=== PATIENT | female | born 1930 | race Caucasian/White ===

== ENCOUNTER 2016-09-05 09:09 | Inpatient (IN) | payer OTHER, MEDICARE ==
[~2016-09-05] VITALS: Ht 170.2 cm; Wt 77.6 kg
[~2016-09-05 09:09] MED LIST: ASPEC325; CLTP; METO50TA16; SPIR25TA
[2016-09-05 09:51] LABS: BASO % 0.3 %; BASO ABS # 0.02 K/uL (0-0.2); COMPLETE YES; EOS % 4.6 %; HEMATOCRIT 40.2 % (37-47); LYMPH ABS # 1.46 K/uL (1.2-3.4); MEAN CELL VOLUME 87.2 fL (80-100); MEAN CORPUSCULAR HEMOGLOBIN 28.2 pg (25-34); MEAN CORPUSCULAR HGB CONC 32.3 g/dl (32-36); MEAN PLATELET VOLUME 9.9 fL (7.4-10.4); MONO % 6.4 %; NEUT % 64.7 %; PLATELET COUNT 165 K/uL (130-400); RED BLOOD COUNT 4.61 M/uL (4.2-5.4); WHITE BLOOD COUNT 6.09 K/uL (4.8-10.8)
--- NOTE | 2016-09-05 09:58 | EMERGENCY ROOM VISIT NOTE ---
History Report prepared by Bereket: Woo Bedolla Under the Supervision of: Dr. Deep Rushing M.D. First contact with patient: 09:34 Chief Complaint: SHORTNESS OF BREATH Stated Complaint: SOB Nursing Triage Summary: Pt states, "I just can't get my breath." Started yesterday. Denies cp or cough. History of Present Illness The patient is an 86 year old female who presents to the Emergency Room with complaints of worsening shortness of breath starting yesterday. The patient states that yesterday the shortness of breath was only when she exerted herself , however now it is constant. The patient denies any abdominal pain, fever, or chills. She states that she is having some mild ankle swelling. She states that she feels like her heart is missing a beat, though this has been chronic, and she has a replacement valve in her heart since 1998. The patient states that she has never had shortness of breath like this before. She additionally states that she has not had any difficulties eating, drinking, urinating, or having bowel movements. The daughter states that the patient was recently adjusted at chiropractor. Source of History: patient, family Onset: yesterday Position: other (global) Quality: other (shortness of breath) Timing: worsening Associated Symptoms: No fevers, No chills, No abdominal pain, No urinary symptoms Note: Associated symptoms: Ankle swelling Review of Systems All systems have been listed, reviewed, and are negative other than those previously mentioned. Please see Additional Medical History Sheet. Past Medical & Surgical Medical Problems: (1) Acute CHF (2) Diabetes (3) HTN (hypertension) Surgical Problems: (1) Heart valve replaced Family History Diabetes mellitus Hypertension Social History Smoking Status: Never Smoker Marital Status: Housing Status: lives alone Occupation Status: retired Current/Historical Medications Scheduled Aspirin (Aspirin Ec), 325 MG PO QAM Metformin Hcl (Glucophage), 500 MG PO DAILY Metoprolol Tartrate (Lopressor) (Lopressor), 50 MG PO DAILY Ranitidine (Zantac), 150 MG PO DAILY Spironolactone (Aldactone), 25 MG PO DAILY Allergies Coded Allergies: Ciprofloxacin (Unverified Allergy, Severe, HIVES, 09/05/16) Penicillins (Unverified Allergy, Mild, HIVES, 09/05/16) Quinolones (Unverified Allergy, Mild, HIVES, 09/05/16) Physical Exam Vital Signs Date Time Temp Pulse Resp B/P (MAP) Pulse Ox O2 Delivery O2 Flow Rate FiO2 09/05/16 11:14 89 18 137/78 97 Room Air 09/05/16 10:25 78 17 156/76 97 Room Air 09/05/16 09:49 90 09/05/16 09:41 90 18 151/88 97 Room Air 09/05/16 09:33 97 Room Air 09/05/16 09:14 92 20 168/61 97 Room Air Physical Exam GENERAL: Patient awake, alert, oriented x 3. Patient follows commands. Patient does not appear toxic. Patient is adequately hydrated and well- nourished. SKIN: No erythema, pallor, cyanosis or rash HEENT: Normal head, pupils equal, reactive to light and accommodation. Oral cavity and posterior pharynx appear normal. Mucous membranes are dry. Neck: Without adenopathy, no neck vein distention. LUNGS: Clear to auscultation. No wheezes, no rales, no rhonchi. HEART: 2/6 systolic murmur. No gallops. No rubs ABDOMEN: No masses, no rebound, no hepatomegaly or splenomegaly. EXTREMITIES: 1+ pretibial edema. No signs of trauma. No pedal edema. No calf or thigh tenderness. NEUROLOGIC: Cranial nerves II-XII within normal limits. No gross motor sensory function deficits. Medical Decision & Procedures ER Provider Diagnostic Interpretation: X ray results are stated below per my interpretation and the radiologist's interpretation. CHEST 2 VIEWS ROUTINE CLINICAL HISTORY: Shortness of breath COMPARISON STUDY: No previous studies for comparison. FINDINGS: There are postsurgical changes of midline sternotomy and valvular replacement. The heart is mildly enlarged. There is interstitial edema with bilateral septal lines. There are small bilateral pleural effusions. There is no lobar consolidation.[ There are surgical clips in the left axillary region. IMPRESSION: Mild interstitial pulmonary edema with small bilateral pleural effusions. Electronically signed by: Miguel Arreola M.D. 09/05/2016 10:08 AM Dictated Date/Time: 09/05/2016 10:07 AM Laboratory Results 09/05/16 09:33 Red Blood Count 4.61, Mean Corpuscular Volume 87.2, Mean Corpuscular Hemoglobin 28.2, Mean Corpuscular Hemoglobin Concent 32.3, Mean Platelet Volume 9.9, Neutrophils (%) (Auto) 64.7, Lymphocytes (%) (Auto) 24.0, Monocytes (%) (Auto) 6.4, Eosinophils (%) (Auto) 4.6, Basophils (%) (Auto) 0.3, Neutrophils # (Auto) 3.94, Lymphocytes # (Auto) 1.46, Monocytes # (Auto) 0.39, Eosinophils # (Auto) 0.28, Basophils # (Auto) 0.02 09/05/16 09:33 Test 09/05/16 09:33 White Blood Count 6.09 K/uL (4.8-10.8) Red Blood Count 4.61 M/uL (4.2-5.4) Hemoglobin 13.0 g/dL (12.0-16.0) Hematocrit 40.2 % (37-47) Mean Corpuscular Volume 87.2 fL (80-100) Mean Corpuscular Hemoglobin 28.2 pg (25-34) Mean Corpuscular Hemoglobin Concent 32.3 g/dl (32-36) Platelet Count 165 K/uL (130-400) Mean Platelet Volume 9.9 fL (7.4-10.4) Neutrophils (%) (Auto) 64.7 % Lymphocytes (%) (Auto) 24.0 % Monocytes (%) (Auto) 6.4 % Eosinophils (%) (Auto) 4.6 % Basophils (%) (Auto) 0.3 % Neutrophils # (Auto) 3.94 K/uL (1.4-6.5) Lymphocytes # (Auto) 1.46 K/uL (1.2-3.4) Monocytes # (Auto) 0.39 K/uL (0.11-0.59) Eosinophils # (Auto) 0.28 K/uL (0-0.5) Basophils # (Auto) 0.02 K/uL (0-0.2) RDW Standard Deviation 50.3 fL (36.4-46.3) RDW Coefficient of Variation 15.6 % (11.5-14.5) Immature Granulocyte % (Auto) 0.0 % Immature Granulocyte # (Auto) 0.00 K/uL (0.00-0.02) Prothrombin Time 11.2 SECONDS (9.0-12.0) Prothromb Time International Ratio 1.0 (0.9-1.1) Anion Gap 10.0 mmol/L (3-11) Est Creatinine Clear Calc Drug Dose 29.0 ml/min Estimated GFR () 35.9 Estimated GFR (Non- 31.0 BUN/Creatinine Ratio 9.8 (10-20) Calcium Level 9.3 mg/dl (8.5-10.1) Total Bilirubin 0.6 mg/dl (0.2-1) Aspartate Amino Transf (AST/SGOT) 25 U/L (15-37) Alanine Aminotransferase (ALT/SGPT) 24 U/L (12-78) Alkaline Phosphatase 71 U/L (45-117) Pro-B-Type Natriuretic Peptide 5938 pg/ml (0-1800) Total Protein 7.2 gm/dl (6.4-8.2) Albumin 4.0 gm/dl (3.4-5.0) Globulin 3.2 gm/dl (2.5-4.0) Albumin/Globulin Ratio 1.3 (0.9-2) Thyroid Stimulating Hormone (TSH) 4.270 uIu/ml (0.300-4.500) Laboratory results as stated above per my review. Medications Administered Medications (Trade) Dose Ordered Sig/Maria Fernanda Route Start Time Stop Time Status Last Admin Dose Admin Furosemide (Lasix Inj) 40 mg NOW STAT IV 09/05/16 10:58 09/05/16 10:59 DC 09/05/16 11:13 40 MG Potassium Chloride (Klor-Con Pwd) 20 meq 1130 ONCE PO 09/05/16 11:30 09/05/16 13:11 DC 09/05/16 14:13 20 MEQ ECG Indication: SOB/dyspnea Rate (beats per minute): 91 Rhythm: atrial flutter Findings: PVC (frequent), no acute ischemic change, other (3 to 1 block) ED Course 0934: Past medical records reviewed. The patient was evaluated in room B12. A complete history and physical examination was performed. 1058: Lasix Inj 40mg IV 1100: I reevaluated the patient, and she was resting. I discussed the treatment plan with her and she was agreeable 1105: I discussed the patient's case with Dr. Dickson, Cardiology, and he will follow up with the patient. 1136: I discussed the patient's case with Marty Solares. He is going to evaluate the patient for further treatment. Medical Decision Differential diagnosis: Etiologies such as congestive heart failure, cardiac ischemia, aortic dissection , pulmonary embolism, pneumonia, pneumothorax, musculoskeletal, infections, pericarditis, myocarditis, esophageal rupture, gastrointestinal, as well as others were entertained. Medication Reconciliation: I attest that I have personally reviewed the patient' s current medication list. Blood Pressure Screening: Patient was found to have a slightly elevated blood pressure and was referred to the hospitalist. Multiple labs, EKG and imaging were obtained. Please see above. The patient is in mild pulmonary edema. She was given IV Lasix. The patient will require further evaluation in the hospital. I discussed care with the hospitalist. The patient also is in atrial flutter. Consults Time Called: 1059 Consulting Physician: Dr. Dickson, Cardiology Returned Call: [phone] I discussed the patient's case with Dr. Dickson, Cardiology, and he will follow up with the patient. Additional Consults: Time Called: 1100 Consulted Physician: Dr. Lainez Hospitalist Returned Call: [phone] Additional Comments: I discussed the patient's case with Marty Solares. He is going to evaluate the patient for further treatment. Impression Primary Impression: Pulmonary edema Additional Impression: Atrial flutter Scribe Attestation The scribe's documentation has been prepared under my direction and personally reviewed by me in its entirety. I confirm that the note above accurately reflects all work, treatment, procedures, and medical decision making performed by me. Departure Information Dispostion Being Evaluated By Hospitalist Referrals Eran Lieberman M.D. (PCP) Patient Instructions My [facility] Problem Qualifiers
[2016-09-05] MEDS ORDERED: ZNTT/150 PO (10:04)
[2016-09-05] MEDS ORDERED: GLC/500 PO (10:04)
[2016-09-05] MEDS ORDERED: ASPI325T39 PO (10:04)
[2016-09-05] MEDS ORDERED: METO50TA16 PO (10:04)
[2016-09-05] MEDS ORDERED: SPIR25TA PO (10:04)
--- NOTE | 2016-09-05 10:09 | DIAGNOSTIC IMAGING REPORT ---
CHEST 2 VIEWS ROUTINE CLINICAL HISTORY: Shortness of breath COMPARISON STUDY: No previous studies for comparison. FINDINGS: There are postsurgical changes of midline sternotomy and valvular replacement. The heart is mildly enlarged. There is interstitial edema with bilateral septal lines. There are small bilateral pleural effusions. There is no lobar consolidation.[ There are surgical clips in the left axillary region. IMPRESSION: Mild interstitial pulmonary edema with small bilateral pleural effusions. Electronically signed by: Miguel Arreola M.D. 09/05/2016 10:08 AM Dictated Date/Time: 09/05/2016 10:07 AM
[2016-09-05 10:15] LABS: BUN/CREATININE RATIO 9.8 (10-20); CALCIUM 9.3 mg/dl (8.5-10.1); CREATININE 1.5 mg/dl (0.60-1.20); POTASSIUM 4.1 mmol/L (3.5-5.1)
[2016-09-05 10:25] LABS: ALB/GLOB RATIO 1.3 (0.9-2); THYROID STIMULATING HORMONE 4.27 uIu/ml (0.300-4.500)
[2016-09-05] MEDS ORDERED: FUROSEMIDE 40 MG/4 ML VIAL IV STA (10:58)
[2016-09-05] MEDS ORDERED: NITROGLYCERIN 0.4 MG SL PER TAB CHARGE SL PRN (11:30)
[2016-09-05] MEDS ORDERED: MoRPHine SULFATE 2 MG/ML CARP IV PRN (11:30)
[2016-09-05] MEDS ORDERED: POTASSIUM CHLORIDE PWD 20 MEQ PACK PO ONE (11:30)
[2016-09-05] MEDS ORDERED: POLYETHYLENE (MIRALAX) 17 GM PACK PO PRN (11:30)
[2016-09-05] MEDS ORDERED: NITROGLYCERIN OINT 2% 1GM PACKET EXT SCH (11:30)
[2016-09-05] MEDS ORDERED: ACETAMINOPHEN 325 MG TAB PO PRN (11:30)
[2016-09-05] MEDS ORDERED: MAGNESIUM HYDROXIDE SUSP 30 ML UDC PO PRN (11:30)
[2016-09-05] MEDS ORDERED: ALUMINUM/MAGNESIUM/SIMETH (MAALOX MAX) 30 ML UDC PO PRN (11:30)
[2016-09-05] MEDS ORDERED: ONDANSETRON INJ 2 MG/ML 2 ML VIAL IV PRN (11:30)
[2016-09-05 11:40] VITALS: BP 137/78; PULSE 91; O2SAT 96; Ht 170.2 cm; Wt 77.6 kg
--- NOTE | 2016-09-05 12:46 | History and Physical ---
History & Physical Date & Time of Service: Sep 05, 2016 at 12:24 Chief Complaint: SOB Primary Care Physician: Eran Lieberman M.D. History of Present Illness Source: patient, family High-functioning 86 y/o F w/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 She presents with acute SOB which woke her up from sleep. She denies a cough, fever, CP, N/V or lightheadedness. She does not have a history of CHF. The last echo we have on record is from 2012, revealing a normal EF and a well-functioning AV without significant stenosis. Initial labs, imaging and clinical exam are consistent with acute CHF. Her SOB improved with a dose of Lasix in the ER. Labs are also notable for a degree of kidney injury as far as she knows her kidney function has previously been normal. An EKG reveals flutter at a controlled rate which is new for this pt. 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 Family History Diabetes mellitus Hypertension Father following a CVA Mother - complications of DM Social History Smoking Status: Never Smoker Marital Status: Occupational Status: retired Multi-Drug Resistant Organisms History of MDRO: No Allergies Coded Allergies: Ciprofloxacin (Unverified Allergy, Severe, HIVES, 09/05/16) Penicillins (Unverified Allergy, Mild, HIVES, 09/05/16) Quinolones (Unverified Allergy, Mild, HIVES, 09/05/16) Home Medications Scheduled Aspirin (Aspirin Ec), 325 MG PO QAM Metformin Hcl (Glucophage), 500 MG PO DAILY Metoprolol Tartrate (Lopressor) (Lopressor), 50 MG PO DAILY Ranitidine (Zantac), 150 MG PO DAILY Spironolactone (Aldactone), 25 MG PO DAILY Review of Systems Constitutional: No fever, No chills, No sweats Eyes: No worsening of vision, No eye pain ENT: No hearing loss, No nasal symptoms Respiratory: + shortness of breath, + dyspnea on exertion, + dyspnea at rest, No cough, No sputum, No wheezing Cardiovascular: + orthopnea, + PND, No chest pain Abdomen: No pain, No nausea, No vomiting Musculoskeletal: No joint pain Genitourinary - Female: No dysuria, No urinary frequency, No urinary urgency Neurologic: No memory loss, No paralysis, No weakness Psychiatric: No depression symptoms Endocrine: No fatigue Hematologic / Lymphatic: No abnormal bleeding/bruising Integumentary: No rash Allergic / Immunologic: No environmental allergies Physical Exam Vital Signs Date Time Temp Pulse Resp B/P (MAP) Pulse Ox O2 Delivery O2 Flow Rate FiO2 09/05/16 11:40 91 18 137/78 96 Room Air 09/05/16 11:14 89 18 137/78 97 Room Air 09/05/16 10:25 78 17 156/76 97 Room Air 09/05/16 09:49 90 09/05/16 09:41 90 18 151/88 97 Room Air 09/05/16 09:33 97 Room Air 09/05/16 09:14 92 20 168/61 97 Room Air General Appearance: WD/WN, no apparent distress Head: normocephalic Eyes: normal inspection, EOMI ENT: normal ENT inspection, pharynx normal Neck: supple, + JVD Respiratory/Chest: chest non-tender, no respiratory distress, + crackles (B/L R >L) Cardiovascular: regular rate, rhythm, no edema, no gallop, + JVD, + systolic murmur (3/6) Abdomen/GI: normal bowel sounds, non tender, soft Back: normal inspection, + pertinent finding (Kyphosis present) Extremities/Musculoskelatal: normal inspection, no calf tenderness, normal capillary refill Neurologic/Psych: devops solutions architect II-XII nml as tested, no motor/sensory deficits, alert, normal mood/affect, normal reflexes, oriented x 3 Skin: normal color, warm/dry, no rash Diagnostics Laboratory Results Results Past 24 Hours Test 09/05/16 09:33 Range/Units White Blood Count 6.09 4.8-10.8 K/uL Red Blood Count 4.61 4.2-5.4 M/uL Hemoglobin 13.0 12.0-16.0 g/dL Hematocrit 40.2 37-47 % Mean Corpuscular Volume 87.2 80-100 fL Mean Corpuscular Hemoglobin 28.2 25-34 pg Mean Corpuscular Hemoglobin Concent 32.3 32-36 g/dl Platelet Count 165 130-400 K/uL Mean Platelet Volume 9.9 7.4-10.4 fL Neutrophils (%) (Auto) 64.7 % Lymphocytes (%) (Auto) 24.0 % Monocytes (%) (Auto) 6.4 % Eosinophils (%) (Auto) 4.6 % Basophils (%) (Auto) 0.3 % Neutrophils # (Auto) 3.94 1.4-6.5 K/uL Lymphocytes # (Auto) 1.46 1.2-3.4 K/uL Monocytes # (Auto) 0.39 0.11-0.59 K/uL Eosinophils # (Auto) 0.28 0-0.5 K/uL Basophils # (Auto) 0.02 0-0.2 K/uL RDW Standard Deviation 50.3 36.4-46.3 fL RDW Coefficient of Variation 15.6 11.5-14.5 % Immature Granulocyte % (Auto) 0.0 % Immature Granulocyte # (Auto) 0.00 0.00-0.02 K/uL Sodium Level 140 136-145 mmol/L Potassium Level 4.1 3.5-5.1 mmol/L Chloride Level 104 98-107 mmol/L Carbon Dioxide Level 26 21-32 mmol/L Anion Gap 10.0 3-11 mmol/L Blood Urea Nitrogen 15 7-18 mg/dl Creatinine 1.50 0.60-1.20 mg/dl Est Creatinine Clear Calc Drug Dose 29.0 ml/min Estimated GFR () 35.9 Estimated GFR (Non- 31.0 BUN/Creatinine Ratio 9.8 10-20 Random Glucose 111 70-99 mg/dl Calcium Level 9.3 8.5-10.1 mg/dl Total Bilirubin 0.6 0.2-1 mg/dl Aspartate Amino Transf (AST/SGOT) 25 15-37 U/L Alanine Aminotransferase (ALT/SGPT) 24 12-78 U/L Alkaline Phosphatase 71 45-117 U/L Troponin I 0.026 0-0.045 ng/ml Pro-B-Type Natriuretic Peptide 5938 0-1800 pg/ml Total Protein 7.2 6.4-8.2 gm/dl Albumin 4.0 3.4-5.0 gm/dl Globulin 3.2 2.5-4.0 gm/dl Albumin/Globulin Ratio 1.3 0.9-2 Thyroid Stimulating Hormone (TSH) 4.270 0.300-4.500 uIu/ml Diagnostic Radiology CXR: Pulmonary edema EKG Flutter - PVCs rate controlled in 70s Impression Assessment and Plan High-functioning 86 y/o F w/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 She presents with acute SOB which woke her up from sleep. She denies a cough, fever, CP, N/V or lightheadedness. She does not have a history of CHF. The last echo we have on record is from 2012, revealing a normal AF and a well-functioning AV without significant stenosis. Initial labs, imaging and clinical exam are consistent with acute CHF. Her SOB improved with a dose of Lasix in the ER. Labs are also notable for a degree of kidney injury as far as she knows her kidney function has previously been normal. An EKG reveals flutter at a controlled rate which is new for this pt. 1) Acute CHF - We will obtain an echo and request a cardiology consult. Will r/ o an acute event with serial enzymes. She has been placed on BID Lasix at 20mg and will continue QD Aldactone. It is noted that her bioprosthesis is 18 y/o so that in the worst case scenario this is valvular CHF. We will avoid NTG at present to avoid significant preload reduction in the event that this is due to stenosis. 2) HTN - she will remain on a Bblocker 3) A flutter - new - consider full dose anticoagulation prior to DC - placed on ASA 4) Borderline DM - Metformin held for now - can be placed in Insulin however her Glu appears controlled Ful code - Heparin prophylaxis Total time for this admit including review of labs, meds, EKG, imaging and records - discussion with pt and ER attending - 35 min Advanced Directives Existing Living Will: No Existing Power of After School Program Coordinator: Yes VTE Prophylaxis VTE Risk Assessment Done? Y/N: Yes Risk Level: Moderate
[2016-09-05 12:50] VITALS: BP 147/81; PULSE 78; TEMP 36.4; O2SAT 97
[2016-09-05 13:49] LABS: PROTHROMBIN TIME (PATIENT) 11.2 SECONDS (9.0-12.0)
[2016-09-05] MEDS ORDERED: HEPARIN SOD 5000 UNIT/0.5 ML CARP SQ SCH (14:00)
[2016-09-05 15:53] VITALS: BP 132/49; PULSE 66; TEMP 36.4; O2SAT 95
--- NOTE | 2016-09-05 16:01 | ECHOCARDIOGRAM REPORT ---
*NOTICE TO RECEIVING [employer] This information is strictly Confidential and protected under [place] law. [place] law prohibits you from making any further disclosure of this information unless further disclosure is expressly permitted by the written consent of the person to whom it pertains or is authorized by law. A general authorization for the release of medical or other information is not sufficient for this purpose. Hospital accepts no responsibility if the information is made available to any other person, INCLUDING THE PATIENT. Interpretation Summary * Name: ANDRAE GZUMAN Study Date: 09/05/2016 01:17 PM BP: 155/78 mmHg * Patient Location: C.2E\S\E202\S\1 HR: 90 * : 1930 (M/d/yyy) Gender: Female Height: 67 in * Age: 86 yrs Ethnicity: CA Weight: 179 lb * Ordering Physician: Robin Lainez * Referring Physician: Self, Referred * Performed By: Hamida Chakraborty RCS * * Reason For Study: CHF * BSA: 1.9 m2 * -- Conclusions -- * 1. Normal left ventricular size and systolic function. EF 55-60%. No regional wall motion abnormalities. Mild concentric left ventricular hypertrophy. Tissue Doppler suggests elevated left atrial pressure. * 2. Mildly dilated right ventricle with mildly reduced systolic function. * 3. Mild biatrial dilation. * 4. Bioprosthetic aortic valve with elevated transvalvular gradients and velocities suggesting moderate to severe stenosis. Mild aortic regurgitation. * 5. Restricted posterior mitral leaflet with at least moderate mitral regurgitation. Systolic reversal of pulmonary venous flow pattern suggests significant mitral regurgitation. * 6. Mildly elevated estimated right ventricular systolic pressure; 39 mmHg. * 7. Compared to prior study on 02/08/2013, bioprosthetic aortic valve transvalvular gradients/velocities are now more significantly elevated. Mitral regurgitation now appears more significant. Rhythm is now atrial flutter. Procedure Details * Left Ventricle The left ventricle is normal in size. There is mild concentric left ventricular hypertrophy. Ejection Fraction = 55-60%. Left ventricular systolic function is normal. The left ventricular wall motion is normal. * Right Ventricle The right ventricle is mildly dilated. The right ventricular systolic function is reduced as assessed by tricuspid annular plane systolic excursion (TAPSE) (TAPSE <1.6 cm). * Atria The left atrium is mildly dilated. The right atrium is mildly dilated. There is no evidence of atrial septal defect, but resolution does not allow assessment for a patent foramen ovale. * Mitral Valve There is no mitral valve stenosis. Restricted posterior mitral leaflet with at least moderate mitral regurgitation. Systolic reversal of pulmonary venous flow pattern suggests significant mitral regurgitation. * Tricuspid Valve The tricuspid valve is not well visualized, but is grossly normal. There is no tricuspid stenosis. There is mild tricuspid regurgitation. * Aortic Valve Bioprosthetic aortic valve with elevated transvalvular gradients and velocities suggesting moderate to severe stenosis. Mild aortic regurgitation. * Pulmonic Valve The pulmonary valve is inadequately visualized, but the Doppler data is adequate for interpretation. There is no pulmonic valvular stenosis. Trace pulmonic valvular regurgitation. * Great Vessels The aortic root is normal size. * Pericardium/Pleural There is no pericardial effusion. * Great Vessels Normal inferior vena cava size and collapsability with sniff indicates a normal right atrial pressure of 3 mmHg * * MMode 2D Measurements and Calculations * IVSd 1.2 cm * * LVIDd 5.1 cm * LVIDs 3.6 cm * LVPWd 1.2 cm * * IVS/LVPW 1.0 * FS 30.0 % * EDV(Teich) 122.5 ml * ESV(Teich) 52.7 ml * EF(Teich) 57.0 % * * EDV(cubed) 130.9 ml * ESV(cubed) 44.8 ml * EF(cubed) 65.8 % * * LV mass(C)d 244.7 grams * LV mass(C)dI 126.9 grams/m\S\2 * * SV(Teich) 69.8 ml * SI(Teich) 36.2 ml/m\S\2 * SV(cubed) 86.1 ml * SI(cubed) 44.6 ml/m\S\2 * * Ao root diam 3.6 cm * Ao root area 10.1 cm\S\2 * * LVOT diam 2.4 cm * LVOT area 4.4 cm\S\2 * * LVAd ap4 37.0 cm\S\2 * LVLd ap4 8.2 cm * EDV(MOD-sp4) 135.0 ml * EDV(sp4-el) 142.9 ml * LVAs ap4 22.9 cm\S\2 * LVLs ap4 7.6 cm * ESV(MOD-sp4) 59.5 ml * ESV(sp4-el) 58.7 ml * EF(MOD-sp4) 55.9 % * EF(sp4-el) 58.9 % * * LVAd ap2 33.2 cm\S\2 * LVLd ap2 8.2 cm * EDV(MOD-sp2) 110.5 ml * EDV(sp2-el) 113.6 ml * LVAs ap2 19.9 cm\S\2 * LVLs ap2 7.7 cm * ESV(MOD-sp2) 44.6 ml * ESV(sp2-el) 43.4 ml * EF(MOD-sp2) 59.6 % * EF(sp2-el) 61.8 % * * LVLd %diff 1.1 % * EDV(MOD-bp) 122.9 ml * LVLs %diff -0.26 % * ESV(MOD-bp) 50.4 ml * EF(MOD-bp) 59.0 % * * SV(MOD-sp4) 75.5 ml * SI(MOD-sp4) 39.1 ml/m\S\2 * * SV(MOD-sp2) 65.8 ml * SI(MOD-sp2) 34.1 ml/m\S\2 * * SV(MOD-bp) 72.5 ml * SI(MOD-bp) 37.6 ml/m\S\2 * * SV(sp4-el) 84.2 ml * SI(sp4-el) 43.7 ml/m\S\2 * * SV(sp2-el) 70.2 ml * SI(sp2-el) 36.4 ml/m\S\2 * * * Doppler Measurements and Calculations * MV E max christopher 152.8 cm/sec * * Ao V2 max 381.3 cm/sec * Ao max PG 58.3 mmHg * Ao max PG (full) 54.7 mmHg * Ao V2 mean 276.3 cm/sec * Ao mean PG 34.0 mmHg * Ao mean PG (full) 31.9 mmHg * Ao V2 VTI 86.6 cm * BRANDIN(I,A) 1.2 cm\S\2 * BRANDIN(I,D) 1.2 cm\S\2 * BRANDIN(V,A) 1.1 cm\S\2 * BRANDIN(V,D) 1.1 cm\S\2 * * AI max christopher 410.3 cm/sec * AI max PG 67.3 mmHg * AI dec slope 474.3 cm/sec\S\2 * AI P1/2t 253.3 msec * * LV V1 max PG 3.7 mmHg * LV V1 mean PG 2.1 mmHg * * LV V1 max 95.4 cm/sec * LV V1 mean 68.5 cm/sec * LV V1 VTI 23.1 cm * * SV(Ao) 872.4 ml * SI(Ao) 452.3 ml/m\S\2 * SV(LVOT) 101.4 ml * SI(LVOT) 52.6 ml/m\S\2 * * TR max christopher 311.9 cm/sec * RVSP(TR) 41.9 mmHg * * RAP systole 3.0 mmHg * *
[2016-09-05 17:01] LABS: PARTIAL THROMBOPLASTIN RATIO 1.2
[2016-09-05] MEDS ORDERED: WARFARIN SOD 5 MG TAB PO ONE (17:30)
--- NOTE | 2016-09-05 17:41 | Cardiology Consultation ---
Cardiology Consultation Date of Consultation: Sep 05, 2016. Requesting Physician: Dr. Lainez Attending Physician: Dr. Lainez Reason for Consultation: CHF Pt evaluation today including: conversation w/ patient, conversation w/ family , physical exam, chart review, lab review, review of studies, review of inpatient medication list, conversation w/ attending History of Present Illness Mrs Castro is a very pleasant 86-year-old female with a history significant for aortic regurgitation status post bioprosthetic aortic valve replacement in 1998, hypertension, and borderline diabetes. She presented to [facility] with shortness of breath. On 09/04/2016 she noticed increasing dyspnea with exertion and orthopnea. She noticed the dyspnea more so with climbing stairs but also with other exertional activities. She typically sleeps in a chair due to comfort but noticed more orthopnea and felt much better when sitting upright. She did not sleep because of her breathing. She denied chest pain, syncope, near-syncope, worsening palpitations, or edema more than baseline. She states that she does have ankle swelling from time to time but she often sits with her feet down. She does have occasional palpitations when she gets excited, but nothing sustained. She was felt to be in CHF in the emergency department was given IV Lasix. She is diuresed greater than 2 L negative thus far and feels much better from a breathing standpoint. She states that she had a cardiac catheterization in 1998 prior to her aortic valve replacement and was told that she had no coronary artery disease. She denies a history of stroke or TIA. She denies bleeding such as melena, hematochezia, or hematuria. She has not been diagnosed with CHF in the past. She lives alone and is able to maintain her daily activities. Review of systems: As above review of systems otherwise negative. Past Medical/Surgical History (1) Aortic regurgitation (2) Borderline diabetes (3) History of aortic valve replacement with bioprosthetic valve (4) HTN (hypertension) Family History Diabetes mellitus Hypertension No known premature CAD. Social History Smoking Status: Never Smoker History of Alcohol Use: No Denies tobacco, alcohol, or drug abuse. She is a since 2010. She has 3 children, 2 daughters and 1 son. Her daughter, son-in-law, and granddaughter presented to the bedside. She lives alone in [place] and is independent. All Other Systems: Reviewed and Negative Allergies Coded Allergies: Ciprofloxacin (Unverified Allergy, Severe, HIVES, 09/05/16) Penicillins (Unverified Allergy, Mild, HIVES, 09/05/16) Quinolones (Unverified Allergy, Mild, HIVES, 09/05/16) Medications Current Inpatient Medications Medications (Trade) Dose Ordered Sig/Maria Fernanda Route Start Time Stop Time Status Last Admin Dose Admin Aspirin (Ecotrin Tab) 325 mg QAM PO 09/06/16 09:00 10/06/16 08:59 Metoprolol Tartrate (Lopressor Tab) 50 mg DAILY PO 09/06/16 09:00 10/06/16 08:59 Ranitidine HCl (zANTac TAB) 150 mg DAILY PO 09/06/16 09:00 10/06/16 08:59 Spironolactone (Aldactone Tab) 25 mg DAILY PO 09/06/16 09:00 10/06/16 08:59 Furosemide 20 mg/ Syringe 2 ml @ 4 mls/min BID@0600,1800 IV 09/05/16 18:00 10/05/16 17:59 Heparin Sodium (Porcine) (Heparin Sq 5000 Unit/0.5ml) 5,000 unit Q8 SQ 09/05/16 14:00 10/05/16 13:59 Acetaminophen (Tylenol Tab) 650 mg Q4H PRN PO 09/05/16 11:30 10/05/16 11:29 Al Hydrox/Mg Hydrox/Simethicone (Maalox Max Susp) 15 ml Q4H PRN PO 09/05/16 11:30 10/05/16 11:29 Magnesium Hydroxide (Milk Of Magnesia Susp) 30 ml Q12H PRN PO 09/05/16 11:30 10/05/16 11:29 Ondansetron HCl (Zofran Inj) 4 mg Q6H PRN IV 09/05/16 11:30 10/05/16 11:29 Nitroglycerin (Nitrostat Tab) 0.4 mg UD PRN SL 09/05/16 11:30 10/05/16 11:29 Morphine Sulfate (MoRPHine SULFATE INJ) 2 mg Q30M PRN IV 09/05/16 11:30 09/19/16 11:29 Polyethylene (Miralax Powder Packet) 17 gm DAILY PRN PO 09/05/16 11:30 10/05/16 11:29 Physical Exam Vital Signs Past 12 Hours Date Time Temp Pulse Resp B/P (MAP) Pulse Ox O2 Delivery O2 Flow Rate FiO2 09/05/16 16:00 Room Air 09/05/16 15:53 36.4 66 18 132/49 (76) 95 Room Air 09/05/16 12:50 36.4 78 18 147/81 (103) 97 Room Air 09/05/16 12:27 87 18 155/68 98 Room Air 09/05/16 11:40 91 18 137/78 96 Room Air 09/05/16 11:14 89 18 137/78 97 Room Air 09/05/16 10:25 78 17 156/76 97 Room Air 09/05/16 09:49 90 09/05/16 09:41 90 18 151/88 97 Room Air 09/05/16 09:33 97 Room Air 09/05/16 09:14 92 20 168/61 97 Room Air Gen.: No acute distress. Alert and oriented. HEENT: Anicteric sclera. Neck: Mild JVD and hepatic jugular reflux. Right carotid bruit. Normal carotid upstrokes bilaterally. Cardiac: PMI was nondisplaced. No ventricular heave. Regular. Normal S1-S2. 2/6 mid to late peaking systolic ejection murmur heard best at right upper sternal border. No rubs or gallops. Pulmonary: Clear to auscultation bilaterally without wheezes, rales, or rhonchi. Abdomen: Soft, nontender, nondistended, with normoactive bowel sounds. No bruits noted. Extremities: 2+ radial pulses bilaterally. 2+ posterior tibialis pulses bilaterally. Trace right lower extremity edema. No cyanosis. Psychiatric: Affect appears appropriate. Data Laboratory Results: Last 24 Hours Test 09/05/16 09:33 09/05/16 13:03 09/05/16 15:56 09/05/16 16:38 White Blood Count 6.09 K/uL Red Blood Count 4.61 M/uL Hemoglobin 13.0 g/dL Hematocrit 40.2 % Mean Corpuscular Volume 87.2 fL Mean Corpuscular Hemoglobin 28.2 pg Mean Corpuscular Hemoglobin Concent 32.3 g/dl Platelet Count 165 K/uL Mean Platelet Volume 9.9 fL Neutrophils (%) (Auto) 64.7 % Lymphocytes (%) (Auto) 24.0 % Monocytes (%) (Auto) 6.4 % Eosinophils (%) (Auto) 4.6 % Basophils (%) (Auto) 0.3 % Neutrophils # (Auto) 3.94 K/uL Lymphocytes # (Auto) 1.46 K/uL Monocytes # (Auto) 0.39 K/uL Eosinophils # (Auto) 0.28 K/uL Basophils # (Auto) 0.02 K/uL RDW Standard Deviation 50.3 fL RDW Coefficient of Variation 15.6 % Immature Granulocyte % (Auto) 0.0 % Immature Granulocyte # (Auto) 0.00 K/uL Prothrombin Time 11.2 SECONDS Prothromb Time International Ratio 1.0 Sodium Level 140 mmol/L Potassium Level 4.1 mmol/L Chloride Level 104 mmol/L Carbon Dioxide Level 26 mmol/L Anion Gap 10.0 mmol/L Blood Urea Nitrogen 15 mg/dl Creatinine 1.50 mg/dl Est Creatinine Clear Calc Drug Dose 29.0 ml/min Estimated GFR () 35.9 Estimated GFR (Non- 31.0 BUN/Creatinine Ratio 9.8 Random Glucose 111 mg/dl Calcium Level 9.3 mg/dl Total Bilirubin 0.6 mg/dl Aspartate Amino Transf (AST/SGOT) 25 U/L Alanine Aminotransferase (ALT/SGPT) 24 U/L Alkaline Phosphatase 71 U/L Troponin I 0.026 ng/ml 0.025 ng/ml Pro-B-Type Natriuretic Peptide 5938 pg/ml Total Protein 7.2 gm/dl Albumin 4.0 gm/dl Globulin 3.2 gm/dl Albumin/Globulin Ratio 1.3 Thyroid Stimulating Hormone (TSH) 4.270 uIu/ml Bedside Glucose 142 mg/dl Activated Partial Thromboplast Time 30.9 SECONDS Partial Thromboplastin Ratio 1.2 Echo 09/05/16: Images personally reviewed. 1. Normal left ventricular size and systolic function. EF 55-60%. No regional wall motion abnormalities. Mild concentric left ventricular hypertrophy. Tissue Doppler suggests elevated left atrial pressure. 2. Mildly dilated right ventricle with mildly reduced systolic function. 3. Mild biatrial dilation. 4. Bioprosthetic aortic valve with elevated transvalvular gradients and velocities suggesting moderate to severe stenosis. Mild aortic regurgitation. 5. Restricted posterior mitral leaflet with at least moderate mitral regurgitation. Systolic reversal of pulmonary venous flow pattern suggests significant mitral regurgitation. 6. Mildly elevated estimated right ventricular systolic pressure; 39 mmHg. 7. Compared to prior study on 02/08/2013, bioprosthetic aortic valve transvalvular gradients/velocities are now more significantly elevated. Mitral regurgitation now appears more significant. Rhythm is now atrial flutter. ECG personally reviewed. ECG 09/05/2016 at 9:28 a.m.: Atrial flutter at 91 bpm. PVCs. Telemetry personally reviewed: Atrial flutter. Chest x-ray from 09/05/2016 personally reviewed: Small bilateral pleural effusions. Increased vascular markings. Radiology has interpreted as mild interstitial pulmonary edema with small bilateral pleural effusions. Assessment & Plan 1. Acute diastolic CHF: She is diuresing very well on intravenous Lasix. Will hold this afternoons dose given the fact that she is already greater than 2 L negative, to see our renal function and electrolytes respond tomorrow. She appears mildly hypervolemic currently but from a symptomatic standpoint much improved. Low-sodium diet. Check daily weights. Monitor fluid balance closely. Etiology may be multifactorial, including mitral regurgitation, aortic stenosis, and atrial flutter. 2. Atrial flutter: This appears to be a new diagnosis. We discussed in detail. She seems to be reasonably rate controlled. Increase metoprolol succinate to 75 mg daily as her heart rate is currently in the 90s while laying in bed. She appears to be relatively asymptomatic. We discussed anticoagulation. Heparin drip will be initiated. Recommend Coumadin as anticoagulant given her bioprosthetic aortic valve with moderate to severe stenosis. Anticoagulation was discussed in detail for stroke risk reduction with her and family members present. 3. Bioprosthetic aortic valve with stenosis: She appears to have moderate to severe stenosis of her bioprosthetic aortic valve. We discussed this in detail. Could be contributing to her CHF. We discussed potentially undergoing aortic valve replacement in the future. She will discuss this in detail with her family. There is no urgent indication. 4. Mitral regurgitation: Appeared to be at least moderate but some spectral Doppler findings suggested more significant mitral regurgitation. Could perform transesophageal echo to better quantify and evaluate the mitral valve. Would only do this if she is interested in corrective measures. This was discussed with her in detail and she will think about it and we can discuss further as an outpatient. 5. Hypertension: Blood pressure acceptable. 6. Disposition: Dr. Brito will be available from a cardiology standpoint tomorrow for any questions or concerns. Plan of care has been discussed in detail with Dr. Lainez, the admitting physician. My office will contact her for heart failure follow-up. Monitor renal function closely and electrolytes will diuresing. Thank you for allowing me to participate in the care of your patient. Please call for any other questions or concerns. Sincerely, Emil Dickson M.D. Highly complex medical issues.
[2016-09-05] MEDS ORDERED: HEPARIN IV BOLUS 6,000 UNIT in SYRINGE 0 ML IV ONE (18:00)
[2016-09-05] MEDS: HEPARIN 25,000 UNIT/500ML D5W 500 ML IV PRN (18:12)
[2016-09-05 19:19] VITALS: BP 141/71; PULSE 89; TEMP 36.7; O2SAT 95
[2016-09-05 23:33] VITALS: BP 146/84; PULSE 91; TEMP 36.7; O2SAT 95
[2016-09-06] VITALS (8 sets, daily range): BP systolic 121–144; BP diastolic 51–69; PULSE 63–96; TEMP 36.3–36.6; O2SAT 94–97
[2016-09-06 01:00] LABS: PARTIAL THROMBOPLASTIN RATIO 3.6
[2016-09-06] MEDS: HEPARIN 25,000 UNIT/500ML D5W 500 ML IV PRN ×3 (01:48→16:00)
[2016-09-06] MEDS: FUROSEMIDE INJ 20 MG in SYRINGE 0 ML IV SCH ×2 (06:08→17:59)
[2016-09-06 08:04] LABS: HEMATOCRIT 39.9 % (37-47); MEAN CELL VOLUME 88.1 fL (80-100); MEAN CORPUSCULAR HGB CONC 34.1 g/dl (32-36); MEAN PLATELET VOLUME 9.7 fL (7.4-10.4); PLATELET COUNT 153 K/uL (130-400); RED BLOOD COUNT 4.53 M/uL (4.2-5.4); WHITE BLOOD COUNT 6.05 K/uL (4.8-10.8)
[2016-09-06] MEDS: RANITIDINE HCL 150 MG TAB PO SCH (08:14)
[2016-09-06] MEDS: ASPIRIN 325 MG ECTAB PO SCH (08:14)
[2016-09-06] MEDS: SPIRONOLACTONE 25 MG TAB PO SCH (08:14)
[2016-09-06] MEDS: METOPROLOL SUCC 25MG EXT REL TAB PO SCH (08:15)
[2016-09-06 08:23] LABS: PARTIAL THROMBOPLASTIN RATIO 3.3
[2016-09-06 08:36] LABS: BUN/CREATININE RATIO 10.4 (10-20); CALCIUM 9.4 mg/dl (8.5-10.1); CREATININE 1.7 mg/dl (0.60-1.20); MAGNESIUM 1.8 mg/dl (1.8-2.4); POTASSIUM 3.9 mmol/L (3.5-5.1)
[2016-09-06] MEDS ORDERED: METOPROLOL TARTRATE 50 MG TAB PO SCH (09:00)
--- NOTE | 2016-09-06 11:39 | Cardiology Follow-Up ---
Cardiology Follow-Up Date of Service Sep 06, 2016. Cardiology Follow-Up SUBJECTIVE: 86-year-old woman with history of bioprosthetic aortic valve replacement 1998 ( normal coronaries at that time), hypertension, and borderline diabetes who was present in with dyspnea and found to have new onset atrial flutter and evidence of congestive heart failure for which she was admitted on 09/05/16. She has responded well to diuretic and felt well this morning. She denies any dyspnea at rest and notes no chest pain, subjective palpitations, or lightheadedness. PHYSICAL EXAMINATION: No distress. I/O -474. Weight 77.6 kilograms (-3.6 kilograms) Vitals: Afebrile. BP 137/51, pulse 96 and irregular, respirations 17 and unlabored. Skin: No unusual lesions or ecchymosis. HEENT: Unremarkable. Neck: Jugular venous pulse at the clavicle at 90. Lungs: Generally clear with rare basilar crackles only. No wheezing or accessory muscle use. Cardiac: Irregular rhythm with 3/6 systolic ejection murmur right upper sternal border, 3/6 apical holosystolic murmur, no diastolic murmur or distinct gallop. Abdomen: Benign. Extremities: Nontender without edema. Intact peripheral pulses. Neurologic: Normal affect, nonfocal DATA: Labs today with normal CBC, PTT 85.7, normal electrolytes, BUN 18, creatinine 1.7 (15 and 1.5 yesterday). Magnesium 1.8. Negative cardiac enzymes. Echo showed preserved systolic function with no wall motion abnormalities, bioprosthetic valve velocities suggested moderate to severe stenosis with mild aortic regurgitation, there was at least moderate mitral regurgitation with moderate pulmonary hypertension. IMPRESSION: 1. New onset atrial flutter, rate controlled/anticoagulation initiated 2. Acute diastolic congestive heart failure, compensated 3. Bioprosthetic aortic valve with moderate to severe stenosis 4. At least moderate mitral regurgitation 5. Moderate pulmonary hypertension DISCUSSION: The patient appears euvolemic today after good response to intravenous diuretics. She is on heparin and warfarin has been initiated for chronic anticoagulation for her newly discovered atrial flutter. She will require further evaluation of her valvular heart disease, but this can be assessed as an outpatient. No new recommendations at this time.
--- NOTE | 2016-09-06 14:54 | Progress Note ---
Subjective Date of Service: Sep 06, 2016. Subjective Pt evaluation today including: conversation w/ patient, physical exam, lab review, conversation w/ relationship consultant, review of inpatient medication list Pain: no pain PO Intake: adequate Voiding: no voiding problems patient feeling much better, acute failure component resolved reviewed labs, Cr up to 1.7 from 1.5, making good urine discussed plan with Dr. Brito, recommend Coumadin discussed plan with patient and her family, will need to keep here for heparin gtt and coumadin want her to ambulate in [place] today Problem List Medical Problems: (1) Atrial flutter Status: Acute (2) Pulmonary edema Status: Acute Review of Systems All Other Systems: Reviewed and Negative Medications Current Inpatient Medications Medications (Trade) Dose Ordered Sig/Maria Fernanda Route Start Time Stop Time Status Last Admin Dose Admin Aspirin (Ecotrin Tab) 325 mg QAM PO 09/06/16 09:00 10/06/16 08:59 09/06/16 08:14 325 MG Ranitidine HCl (zANTac TAB) 150 mg DAILY PO 09/06/16 09:00 10/06/16 08:59 09/06/16 08:14 150 MG Spironolactone (Aldactone Tab) 25 mg DAILY PO 09/06/16 09:00 10/06/16 08:59 09/06/16 08:14 25 MG Furosemide 20 mg/ Syringe 2 ml @ 4 mls/min BID@0600,1800 IV 09/05/16 18:00 10/05/16 17:59 Future hold 09/06/16 06:08 4 MLS/MIN Acetaminophen (Tylenol Tab) 650 mg Q4H PRN PO 09/05/16 11:30 10/05/16 11:29 Al Hydrox/Mg Hydrox/Simethicone (Maalox Max Susp) 15 ml Q4H PRN PO 09/05/16 11:30 10/05/16 11:29 Magnesium Hydroxide (Milk Of Magnesia Susp) 30 ml Q12H PRN PO 09/05/16 11:30 10/05/16 11:29 Ondansetron HCl (Zofran Inj) 4 mg Q6H PRN IV 09/05/16 11:30 10/05/16 11:29 Nitroglycerin (Nitrostat Tab) 0.4 mg UD PRN SL 09/05/16 11:30 10/05/16 11:29 Morphine Sulfate (MoRPHine SULFATE INJ) 2 mg Q30M PRN IV 09/05/16 11:30 09/19/16 11:29 Polyethylene (Miralax Powder Packet) 17 gm DAILY PRN PO 09/05/16 11:30 10/05/16 11:29 Metoprolol Succinate (Toprol Xl Tab) 75 mg QAM PO 09/06/16 09:00 10/06/16 08:59 09/06/16 08:15 75 MG Warfarin Sodium (Coumadin Tab) 2.5 mg DAILY@16 PO 09/06/16 16:00 10/06/16 15:59 Heparin Sodium/ Dextrose 500 ml @ 19 mls/hr Q24H PRN IV 09/05/16 18:00 10/05/16 17:59 09/06/16 01:48 22 MLS/HR Objective Vital Signs Date Time Temp Pulse Resp B/P (MAP) Pulse Ox O2 Delivery O2 Flow Rate FiO2 09/06/16 12:00 Room Air 09/06/16 11:31 36.3 69 18 121/61 (81) 96 Room Air 09/06/16 08:30 94 Room Air 09/06/16 06:53 36.6 96 17 137/51 (79) 94 Room Air 09/06/16 04:00 Room Air 09/06/16 03:07 36.6 70 18 144/63 (90) 96 Room Air 09/06/16 02:12 85 140/69 (92) 09/05/16 23:59 Room Air 09/05/16 23:33 36.7 91 18 146/84 (104) 95 Room Air 09/05/16 20:00 Room Air 09/05/16 19:19 36.7 89 20 141/71 (94) 95 Room Air 09/05/16 16:00 Room Air 09/05/16 15:53 36.4 66 18 132/49 (76) 95 Room Air Physical Exam General Appearance: WD/WN, no apparent distress Eyes: normal inspection, EOMI, sclerae normal ENT: normal ENT inspection, hearing grossly normal, pharynx normal Neck: supple, no adenopathy, no JVD, trachea midline Respiratory/Chest: chest non-tender, lungs clear, normal breath sounds, no respiratory distress, no accessory muscle use Cardiovascular: regular rate, rhythm, no edema, no gallop, no JVD, + systolic murmur Abdomen: normal bowel sounds, non tender, soft, no organomegaly Extremities: normal range of motion, non-tender, normal inspection, no pedal edema, no calf tenderness, pelvis stable 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, no motor/sensory deficits, alert, normal mood/affect, oriented x 3 Skin: normal color, warm/dry, no rash Laboratory Results Last 24 Hours Test 09/05/16 15:56 09/05/16 16:38 09/06/16 00:30 09/06/16 07:50 Bedside Glucose 142 mg/dl Activated Partial Thromboplast Time 30.9 SECONDS 93.0 SECONDS 85.7 SECONDS Partial Thromboplastin Ratio 1.2 3.6 3.3 White Blood Count 6.05 K/uL Red Blood Count 4.53 M/uL Hemoglobin 13.6 g/dL Hematocrit 39.9 % Mean Corpuscular Volume 88.1 fL Mean Corpuscular Hemoglobin 30.0 pg Mean Corpuscular Hemoglobin Concent 34.1 g/dl RDW Standard Deviation 50.7 fL RDW Coefficient of Variation 15.6 % Platelet Count 153 K/uL Mean Platelet Volume 9.7 fL Sodium Level 138 mmol/L Potassium Level 3.9 mmol/L Chloride Level 103 mmol/L Carbon Dioxide Level 29 mmol/L Anion Gap 6.0 mmol/L Blood Urea Nitrogen 18 mg/dl Creatinine 1.70 mg/dl Est Creatinine Clear Calc Drug Dose 25.0 ml/min Estimated GFR () 30.9 Estimated GFR (Non- 26.6 BUN/Creatinine Ratio 10.4 Random Glucose 145 mg/dl Calcium Level 9.4 mg/dl Magnesium Level 1.8 mg/dl Assessment and Plan High-functioning 86 y/o F w/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 She presents with acute SOB which woke her up from sleep. She denies a cough, fever, CP, N/V or lightheadedness. She does not have a history of CHF. The last echo we have on record is from 2012, revealing a normal AF and a well-functioning AV without significant stenosis. Initial labs, imaging and clinical exam are consistent with acute CHF. Her SOB improved with a dose of Lasix in the ER. Labs are also notable for a degree of kidney injury as far as she knows her kidney function has previously been normal. An EKG reveals flutter at a controlled rate which is new for this pt. Acute diastolic heart failure: possibly due to tachycardia with atrial flutter acute component resolved, echo shows normal EF, stenosis of bioprosthetic aortic valve hold on further Lasix at this time as she examines euvolemic and Cr rising to 1.7 reassess tomorrow New atrial flutter: HR controlled on increased dose of Toprol to 75mg daily heparin gtt and Coumadin instituted unfortunately with Cr of 1.7 she is not good candidate for Lovenox or the NOAC HTN - she will remain on a Toprol Borderline DM - Metformin held for now - Novolog SS keep on tele today, assess HR while ambulating, heparin gtt and coumadin
[2016-09-06] MEDS ORDERED: WARFARIN SOD 2.5 MG TAB PO SCH (16:00)
[2016-09-06 17:11] LABS: PARTIAL THROMBOPLASTIN RATIO 2.6
[2016-09-07] VITALS (7 sets, daily range): BP systolic 127–159; BP diastolic 46–71; PULSE 66–92; TEMP 36.3–36.7; O2SAT 95–99
[2016-09-07 06:14] LABS: PARTIAL THROMBOPLASTIN RATIO 2.4
[2016-09-07] MEDS: FUROSEMIDE INJ 20 MG in SYRINGE 0 ML IV SCH (07:08)
[2016-09-07] MEDS: ASPIRIN 325 MG ECTAB PO SCH (07:58)
[2016-09-07] MEDS: SPIRONOLACTONE 25 MG TAB PO SCH (07:58)
[2016-09-07] MEDS: RANITIDINE HCL 150 MG TAB PO SCH (07:59)
[2016-09-07] MEDS: METOPROLOL SUCC 25MG EXT REL TAB PO SCH (07:59)
[2016-09-07 09:34] LABS: INR 1.1 (0.9-1.1); PROTHROMBIN TIME (PATIENT) 11.6 SECONDS (9.0-12.0)
[2016-09-07 09:49] LABS: BUN/CREATININE RATIO 13.9 (10-20); CALCIUM 9.2 mg/dl (8.5-10.1); CREATININE 1.6 mg/dl (0.60-1.20); POTASSIUM 3.7 mmol/L (3.5-5.1)
--- NOTE | 2016-09-07 10:33 | Cardiology Follow-Up ---
Cardiology Follow-Up Date of Service Sep 07, 2016. Cardiology Follow-Up SUBJECTIVE: 86-year-old woman with history of bioprosthetic aortic valve replacement 1998 ( normal coronaries at that time), hypertension, and borderline diabetes who was present in with dyspnea and found to have new onset atrial flutter and evidence of congestive heart failure for which she was admitted on 09/05/16. She has responded well to diuretics and has felt well the past 2 mornings. She denies any dyspnea at rest and notes no chest pain, subjective palpitations, or lightheadedness. PHYSICAL EXAMINATION: No distress. I/O -445 Weight 75.7 kilograms (-2.1 kilograms) Vitals: Afebrile. BP 140/46, pulse 66 and irregular, respirations 17 and unlabored. Skin: No unusual lesions or ecchymosis. HEENT: Unremarkable. Neck: Jugular venous pulse at or slightly below the clavicle at 90. Lungs: Generally clear. No crackles today. No wheezing or accessory muscle use. Cardiac: Irregular rhythm with 3/6 systolic ejection murmur right upper sternal border radiating to the carotids and apex, no diastolic murmur or distinct gallop. Diminished but audible aortic closure sound. Abdomen: Benign. Extremities: Nontender without edema. Intact peripheral pulses. Neurologic: Normal affect, nonfocal DATA: Labs today with normal electrolytes, BUN 22, creatinine 1.6 (18 & 1.7 yesterday) INR 1.1. PTT 63. Echo showed preserved systolic function with no wall motion abnormalities, bioprosthetic valve velocities suggested moderate to severe stenosis with mild aortic regurgitation, there was at least moderate mitral regurgitation with moderate pulmonary hypertension. IMPRESSION: 1. New onset atrial flutter, rate controlled/anticoagulation initiated 2. Acute diastolic congestive heart failure, compensated 3. Bioprosthetic aortic valve with moderate to severe stenosis 4. At least moderate mitral regurgitation 5. Moderate pulmonary hypertension DISCUSSION: The patient still appears euvolemic today after good response to intravenous diuretics. She is on heparin and warfarin has been initiated for chronic anticoagulation for her newly discovered atrial flutter. She will require further evaluation of her valvular heart disease, but this can be assessed as an outpatient. No new recommendations at this time.
--- NOTE | 2016-09-07 12:35 | Progress Note ---
Subjective Date of Service: Sep 07, 2016. Subjective Pt evaluation today including: conversation w/ patient, conversation w/ family , physical exam, lab review, review of inpatient medication list Pain: no pain PO Intake: adequate Voiding: no voiding problems patient doing well, breathing well discussed need to be here for heparin gtt and Coumadin HR is well controlled today Problem List Medical Problems: (1) Atrial flutter Status: Acute (2) Pulmonary edema Status: Acute Review of Systems All Other Systems: Reviewed and Negative Medications Current Inpatient Medications Medications (Trade) Dose Ordered Sig/Maria Fernanda Route Start Time Stop Time Status Last Admin Dose Admin Aspirin (Ecotrin Tab) 325 mg QAM PO 09/06/16 09:00 10/06/16 08:59 09/07/16 07:58 325 MG Ranitidine HCl (zANTac TAB) 150 mg DAILY PO 09/06/16 09:00 10/06/16 08:59 09/07/16 07:59 150 MG Spironolactone (Aldactone Tab) 25 mg DAILY PO 09/06/16 09:00 10/06/16 08:59 09/07/16 07:58 25 MG Acetaminophen (Tylenol Tab) 650 mg Q4H PRN PO 09/05/16 11:30 10/05/16 11:29 Al Hydrox/Mg Hydrox/Simethicone (Maalox Max Susp) 15 ml Q4H PRN PO 09/05/16 11:30 10/05/16 11:29 Magnesium Hydroxide (Milk Of Magnesia Susp) 30 ml Q12H PRN PO 09/05/16 11:30 10/05/16 11:29 Ondansetron HCl (Zofran Inj) 4 mg Q6H PRN IV 09/05/16 11:30 10/05/16 11:29 Nitroglycerin (Nitrostat Tab) 0.4 mg UD PRN SL 09/05/16 11:30 10/05/16 11:29 Morphine Sulfate (MoRPHine SULFATE INJ) 2 mg Q30M PRN IV 09/05/16 11:30 09/19/16 11:29 Polyethylene (Miralax Powder Packet) 17 gm DAILY PRN PO 09/05/16 11:30 10/05/16 11:29 Metoprolol Succinate (Toprol Xl Tab) 75 mg QAM PO 09/06/16 09:00 10/06/16 08:59 7/16/17 07:59 75 MG Warfarin Sodium (Coumadin Tab) 2.5 mg DAILY@16 PO 09/06/16 16:00 10/06/16 15:59 09/06/16 15:58 2.5 MG Heparin Sodium/ Dextrose 500 ml @ 19 mls/hr Q24H PRN IV 09/05/16 18:00 10/05/16 17:59 09/06/16 16:00 19 MLS/HR Furosemide (Lasix Tab) 40 mg QAM PO 09/08/16 08:00 10/08/16 08:59 Objective Vital Signs Date Time Temp Pulse Resp B/P (MAP) Pulse Ox O2 Delivery O2 Flow Rate FiO2 09/07/16 11:05 Room Air 09/07/16 11:05 36.7 74 18 136/62 (86) 99 Room Air 09/07/16 10:51 36.3 66 17 95 09/07/16 08:00 Room Air 09/07/16 06:56 36.3 66 17 140/46 (77) 95 Room Air 09/07/16 04:42 36.5 67 18 159/66 (97) 98 Room Air 09/07/16 04:00 Room Air 09/07/16 00:14 36.4 92 18 146/71 (96) 97 Room Air 09/06/16 23:59 Room Air 09/06/16 20:00 Room Air 09/06/16 19:02 36.3 69 20 130/65 (86) 96 Room Air 09/06/16 16:00 97 Room Air 09/06/16 15:05 36.3 63 18 139/56 (83) 97 Room Air Physical Exam General Appearance: WD/WN, no apparent distress Neck: supple, no adenopathy, no JVD, trachea midline Respiratory/Chest: chest non-tender, lungs clear, normal breath sounds, no respiratory distress, no accessory muscle use Cardiovascular: regular rate, rhythm, no edema, no gallop, no JVD, no murmur Abdomen: normal bowel sounds, non tender, soft, no organomegaly Extremities: normal range of motion, non-tender, normal inspection, no pedal edema, no calf tenderness Neurologic/Psychiatric: adult secondary education instructor II-XII nml as tested, no motor/sensory deficits, alert, normal mood/affect, oriented x 3 Skin: normal color, warm/dry, no rash Lymphatic: no adenopathy Laboratory Results Last 24 Hours Test 09/06/16 15:39 09/07/16 05:20 09/07/16 08:51 Activated Partial Thromboplast Time 67.6 SECONDS 63.0 SECONDS Partial Thromboplastin Ratio 2.6 2.4 Prothrombin Time 11.6 SECONDS Prothromb Time International Ratio 1.1 Sodium Level 138 mmol/L Potassium Level 3.7 mmol/L Chloride Level 102 mmol/L Carbon Dioxide Level 29 mmol/L Anion Gap 7.0 mmol/L Blood Urea Nitrogen 22 mg/dl Creatinine 1.60 mg/dl Est Creatinine Clear Calc Drug Dose 26.3 ml/min Estimated GFR () 33.2 Estimated GFR (Non- 28.7 BUN/Creatinine Ratio 13.9 Random Glucose 148 mg/dl Calcium Level 9.2 mg/dl Assessment and Plan High-functioning 86 y/o F w/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 She presents with acute SOB which woke her up from sleep. She denies a cough, fever, CP, N/V or lightheadedness. She does not have a history of CHF. The last echo we have on record is from 2012, revealing a normal AF and a well-functioning AV without significant stenosis. Initial labs, imaging and clinical exam are consistent with acute CHF. Her SOB improved with a dose of Lasix in the ER. Labs are also notable for a degree of kidney injury as far as she knows her kidney function has previously been normal. An EKG reveals flutter at a controlled rate which is new for this pt. Acute diastolic heart failure: possibly due to tachycardia with atrial flutter acute component resolved, echo shows normal EF, stenosis of bioprosthetic aortic valve continue Lasix 40mg PO daily, Cr stable at 1.6 New atrial flutter: HR controlled on increased dose of Toprol to 75mg daily heparin gtt and Coumadin instituted INR only 1.1, will increase dose to 5mg daily unfortunately with Cr of 1.7 she is not good candidate for Lovenox or the NOAC HTN - she will remain on a Toprol 75mg daily Borderline DM - Metformin held for now - Novolog , can resume Metformin on d/c transfer to [facility], here in hospital until INR therapeutic
[2016-09-07] MEDS: HEPARIN 25,000 UNIT/500ML D5W 500 ML IV PRN (14:29)
[2016-09-07] MEDS ORDERED: WARFARIN SOD 5 MG TAB PO SCH (16:00)
[2016-09-08 06:23] LABS: HEMATOCRIT 37.1 % (37-47); MEAN CELL VOLUME 86.1 fL (80-100); MEAN CORPUSCULAR HEMOGLOBIN 28.3 pg (25-34); MEAN CORPUSCULAR HGB CONC 32.9 g/dl (32-36); MEAN PLATELET VOLUME 9.5 fL (7.4-10.4); PLATELET COUNT 154 K/uL (130-400); RED BLOOD COUNT 4.31 M/uL (4.2-5.4); WHITE BLOOD COUNT 5.99 K/uL (4.8-10.8)
[2016-09-08 06:27] LABS: INR 1.1 (0.9-1.1); PARTIAL THROMBOPLASTIN RATIO 2.7; PROTHROMBIN TIME (PATIENT) 11.7 SECONDS (9.0-12.0)
[2016-09-08 06:35] LABS: BUN/CREATININE RATIO 16.6 (10-20); CALCIUM 8.9 mg/dl (8.5-10.1); CREATININE 1.4 mg/dl (0.60-1.20); POTASSIUM 3.8 mmol/L (3.5-5.1)
[2016-09-08 08:00] VITALS: BP 124/60; PULSE 69; TEMP 36.8; O2SAT 99
[2016-09-08] MEDS: SPIRONOLACTONE 25 MG TAB PO SCH (09:12)
[2016-09-08] MEDS: ASPIRIN 325 MG ECTAB PO SCH (09:13)
[2016-09-08] MEDS: FUROSEMIDE 40 MG TAB PO SCH (09:13)
[2016-09-08] MEDS: METOPROLOL SUCC 25MG EXT REL TAB PO SCH (09:14)
[2016-09-08] MEDS: RANITIDINE HCL 150 MG TAB PO SCH (09:15)
--- NOTE | 2016-09-08 10:39 | Clinical Documentation Query ---
TRIXIE John : CLINICAL DOCUMENTATION QUERY Patient is an 86 year old woman admitted for treatment of acute diastolic CHF and new onset atrial flutter. Documentation has included "Labs are also notable for a degree of kidney injury as far as she knows her kidney function has previously been normal". This cannot be further interpreted by the professional paper rewinder operator. Please clarify as clinically appropriate. Thank you. In your clinical opinion is this patient being managed for: ( ) Acute kidney failure ( ) CKD stage 3 ( ) Other explanation of clinical findings (Please Explain) ( ) Unable to determine (Please Define) ( ) Need to Discuss ( ) Not Agree The medical record reflects the following clinical findings, treatment, and risk factors. Clinical Indicators: As above Treatment: Serial chemistries. Risk Factors: Advanced age, acute diastolic CHF, hypertension, atrial flutter Please clarify and document your clinical opinion in the progress notes and discharge summary. Terms such as "probable", "suspected", "likely", "questionable", "possible", or "still to be ruled out" are acceptable. IF IN AGREEMENT, YOU MUST DOCUMENT ABOVE DIAGNOSTIC STATEMENT IN DAILY PROGRESS NOTES AND DISCHARGE SUMMARY. This document is not part of the patient's record. Thank You, Trixie Welch, LULY [phone]
[2016-09-08 15:53] VITALS: BP 114/65; PULSE 64; TEMP 36.4; O2SAT 96
--- NOTE | 2016-09-08 16:18 | Hospitalist Progress Note ---
Hospitalist Progress Note Date of Service Sep 08, 2016. Subjective Pt evaluation today including: conversation w/ patient, conversation w/ family , physical exam, chart review, lab review, review of studies Patient with no complaints All Other Systems: Reviewed and Negative Objective Vital Signs Date Time Temp Pulse Resp B/P (MAP) Pulse Ox O2 Delivery O2 Flow Rate FiO2 09/08/16 15:53 36.4 64 16 114/65 (81) 96 Room Air 09/08/16 08:00 36.8 69 16 124/60 (81) 99 Room Air 09/08/16 08:00 Room Air 09/08/16 02:46 Room Air 09/07/16 23:30 36.4 82 18 134/57 (82) 99 Room Air 09/07/16 21:11 Room Air Physical Exam General Appearance: WD/WN, no apparent distress Eyes: sclerae normal ENT: hearing grossly normal Neck: trachea midline Respiratory/Chest: chest non-tender Cardiovascular: + irregularly irregular Abdomen: normal bowel sounds Extremities: normal range of motion Laboratory Results Last 24 Hours Test 09/08/16 05:57 White Blood Count 5.99 K/uL Red Blood Count 4.31 M/uL Hemoglobin 12.2 g/dL Hematocrit 37.1 % Mean Corpuscular Volume 86.1 fL Mean Corpuscular Hemoglobin 28.3 pg Mean Corpuscular Hemoglobin Concent 32.9 g/dl RDW Standard Deviation 48.4 fL RDW Coefficient of Variation 15.2 % Platelet Count 154 K/uL Mean Platelet Volume 9.5 fL Prothrombin Time 11.7 SECONDS Prothromb Time International Ratio 1.1 Activated Partial Thromboplast Time 69.0 SECONDS Partial Thromboplastin Ratio 2.7 Sodium Level 139 mmol/L Potassium Level 3.8 mmol/L Chloride Level 103 mmol/L Carbon Dioxide Level 30 mmol/L Anion Gap 6.0 mmol/L Blood Urea Nitrogen 23 mg/dl Creatinine 1.40 mg/dl Est Creatinine Clear Calc Drug Dose 30.1 ml/min Estimated GFR () 39.1 Estimated GFR (Non- 33.7 BUN/Creatinine Ratio 16.6 Random Glucose 102 mg/dl Calcium Level 8.9 mg/dl Assessment and Plan igh-functioning 86 y/o F w/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 She presents with acute SOB which woke her up from sleep. She denies a cough, fever, CP, N/V or lightheadedness. She does not have a history of CHF. The last echo we have on record is from 2012, revealing a normal AF and a well-functioning AV without significant stenosis. Initial labs, imaging and clinical exam are consistent with acute CHF. Her SOB improved with a dose of Lasix in the ER. Labs are also notable for a degree of kidney injury as far as she knows her kidney function has previously been normal. An EKG reveals flutter at a controlled rate which is new for this pt. Acute diastolic heart failure: possibly due to tachycardia with atrial flutter acute component resolved, echo shows normal EF, stenosis of bioprosthetic aortic valve continue Lasix 40mg PO daily, Cr stable at 1.6 New atrial flutter: HR controlled on increased dose of Toprol to 75mg daily heparin gtt and Coumadin instituted INR only 1.1, will increase dose to 5mg daily unfortunately with Cr of 1.7 she is not good candidate for Lovenox or the NOAC Discussed in detail why Coumadin is his drug of choice in valvular heart disease and atrial fibrillation presently on bridging therapy HTN - she will remain on a Toprol 75mg daily Borderline DM - [facility] on d/c transfer to [facility], here in hospital until INR therapeutic Advanced care planning discussed with the patient. Her daughter was present patient has a will, but no living will or power of transactional attorney. She has 3 children , and her is . A power of transactional attorney, and a living will are important to allow for the patient's wishes to be expressed at all times. Patient has been thinking about a living will and does not have any answers as to what should be in the document presently. Various scenarios were discussed and she understands the need to obtain the above documents.
[2016-09-08] MEDS: WARFARIN SOD 7.5 MG TAB PO SCH (16:19)
[2016-09-08] MEDS: HEPARIN 25,000 UNIT/500ML D5W 500 ML IV PRN (18:04)
[2016-09-08 22:41] VITALS: BP 124/68; PULSE 60; TEMP 36.6; O2SAT 97
[2016-09-09 07:30] VITALS: BP 125/57; PULSE 66; TEMP 36.4; O2SAT 97
[2016-09-09] MEDS: RANITIDINE HCL 150 MG TAB PO SCH (08:16)
[2016-09-09] MEDS: ASPIRIN 325 MG ECTAB PO SCH (08:17)
[2016-09-09] MEDS: METOPROLOL SUCC 25MG EXT REL TAB PO SCH (08:17)
[2016-09-09] MEDS: SPIRONOLACTONE 25 MG TAB PO SCH (08:17)
[2016-09-09] MEDS: FUROSEMIDE 40 MG TAB PO SCH (08:18)
[2016-09-09 09:54] LABS: INR 1.3 (0.9-1.1); PARTIAL THROMBOPLASTIN RATIO 3.3
[2016-09-09] MEDS: WARFARIN SOD 7.5 MG TAB PO SCH (15:41)
[2016-09-09 15:54] VITALS: BP 125/47; PULSE 65; TEMP 36.6; O2SAT 97
[2016-09-09 16:54] LABS: PARTIAL THROMBOPLASTIN RATIO 2.4
--- NOTE | 2016-09-09 22:48 | Hospitalist Progress Note ---
Hospitalist Progress Note Date of Service Sep 09, 2016. Subjective Pt evaluation today including: conversation w/ patient Patient with no complaints awaiting therapeutic Coumadin level Objective Vital Signs Date Time Temp Pulse Resp B/P (MAP) Pulse Ox O2 Delivery O2 Flow Rate FiO2 09/09/16 16:00 Room Air 09/09/16 15:54 36.6 65 18 125/47 (73) 97 Room Air 09/09/16 08:00 Room Air 09/09/16 07:30 36.4 66 18 125/57 (79) 97 Room Air 09/09/16 00:00 Room Air Physical Exam General Appearance: no apparent distress Neck: trachea midline Respiratory/Chest: lungs clear Cardiovascular: + irregularly irregular Abdomen: normal bowel sounds Extremities: normal range of motion Neurologic/Psychiatric: alert, normal mood/affect Laboratory Results Last 24 Hours Test 09/09/16 09:15 09/09/16 16:13 Prothrombin Time 14.0 SECONDS Prothromb Time International Ratio 1.3 Activated Partial Thromboplast Time 86.1 SECONDS 62.7 SECONDS Partial Thromboplastin Ratio 3.3 2.4 Assessment and Plan igh-functioning 86 y/o F w/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 She presents with acute SOB which woke her up from sleep. She denies a cough, fever, CP, N/V or lightheadedness. She does not have a history of CHF. The last echo we have on record is from 2012, revealing a normal AF and a well-functioning AV without significant stenosis. Initial labs, imaging and clinical exam are consistent with acute CHF. Her SOB improved with a dose of Lasix in the ER. Labs are also notable for a degree of kidney injury as far as she knows her kidney function has previously been normal. An EKG reveals flutter at a controlled rate which is new for this pt. Acute diastolic heart failure: possibly due to tachycardia with atrial flutter acute component resolved, echo shows normal EF, stenosis of bioprosthetic aortic valve continue Lasix 40mg PO daily, Cr stable at 1.6. Discussion held about transesophageal echocardiogram. The patient would have to be agreeable to the very least TAVR in order to proceed with transesophageal echocardiogram. If she was not agreeable to this procedure, and there have been no need for further workup, since all procedures have potential risks. Patient understands and would like to think further about whether she would like to pursue TAVR. New atrial flutter: HR controlled on increased dose of Toprol to 75mg daily heparin gtt and Coumadin instituted INR only 1.1, will increase dose to 5mg daily unfortunately with Cr of 1.7 she is not good candidate for Lovenox or the NOAC Discussed in detail why Coumadin is his drug of choice in valvular heart disease and atrial fibrillation presently on bridging therapy HTN - she will remain on a Toprol 75mg daily Borderline DM - Metformin held for now - Novolog , can resume Metformin on d/c transfer to [facility], here in hospital until INR therapeutic Advanced care planning discussed with the patient. Her daughter was present patient has a will, but no living will or power of assistant prosecuting attorney. She has 3 children , and her is . A power of assistant prosecuting attorney, and a living will are important to allow for the patient's wishes to be expressed at all times. Patient has been thinking about a living will and does not have any answers as to what should be in the document presently. Various scenarios were discussed and she understands the need to obtain the above documents.
[2016-09-09 23:51] VITALS: BP 143/51; PULSE 85; TEMP 36.3; O2SAT 99
[2016-09-10] MEDS: HEPARIN 25,000 UNIT/500ML D5W 500 ML IV PRN (00:31)
[2016-09-10 07:29] VITALS: BP 129/59; PULSE 67; TEMP 36.7; O2SAT 97
[2016-09-10] MEDS: RANITIDINE HCL 150 MG TAB PO SCH (08:08)
[2016-09-10] MEDS: ASPIRIN 325 MG ECTAB PO SCH (08:08)
[2016-09-10] MEDS: SPIRONOLACTONE 25 MG TAB PO SCH (08:08)
[2016-09-10] MEDS: METOPROLOL SUCC 25MG EXT REL TAB PO SCH (08:08)
[2016-09-10] MEDS: FUROSEMIDE 40 MG TAB PO SCH (08:08)
[2016-09-10 08:23] LABS: INR 1.6 (0.9-1.1); PARTIAL THROMBOPLASTIN RATIO 2.5; PROTHROMBIN TIME (PATIENT) 17.5 SECONDS (9.0-12.0)
[2016-09-10 15:52] VITALS: BP 145/80; PULSE 66; TEMP 36.3; O2SAT 97
[2016-09-10] MEDS ORDERED: WARFARIN SOD 10 MG TAB PO SCH (16:00)
--- NOTE | 2016-09-10 18:55 | Hospitalist Progress Note ---
Hospitalist Progress Note Date of Service Sep 10, 2016. Subjective Pt evaluation today including: conversation w/ patient Patient with no complaints INR still subtherapeutic Objective Vital Signs Date Time Temp Pulse Resp B/P (MAP) Pulse Ox O2 Delivery O2 Flow Rate FiO2 09/10/16 16:00 Room Air 09/10/16 15:52 36.3 66 18 145/80 (101) 97 Room Air 09/10/16 08:00 Room Air 09/10/16 07:29 36.7 67 20 129/59 (82) 97 Room Air 09/10/16 03:00 Room Air 09/09/16 23:51 36.3 85 20 143/51 (81) 99 Room Air Physical Exam General Appearance: no apparent distress Neck: trachea midline Respiratory/Chest: lungs clear Cardiovascular: regular rate, rhythm Abdomen: normal bowel sounds Extremities: non-tender Laboratory Results Last 24 Hours Test 09/10/16 07:47 Prothrombin Time 17.5 SECONDS Prothromb Time International Ratio 1.6 Activated Partial Thromboplast Time 65.8 SECONDS Partial Thromboplastin Ratio 2.5 Assessment and Plan igh-functioning 86 y/o F w/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 She presents with acute SOB which woke her up from sleep. She denies a cough, fever, CP, N/V or lightheadedness. She does not have a history of CHF. The last echo we have on record is from 2012, revealing a normal AF and a well-functioning AV without significant stenosis. Initial labs, imaging and clinical exam are consistent with acute CHF. Her SOB improved with a dose of Lasix in the ER. Labs are also notable for a degree of kidney injury as far as she knows her kidney function has previously been normal. An EKG reveals flutter at a controlled rate which is new for this pt. Acute diastolic heart failure: possibly due to tachycardia with atrial flutter acute component resolved, echo shows normal EF, stenosis of bioprosthetic aortic valve continue Lasix 40mg PO daily, Cr stable at 1.6. Discussion held about transesophageal echocardiogram. The patient would have to be agreeable to the very least TAVR in order to proceed with transesophageal echocardiogram. If she was not agreeable to this procedure, and there have been no need for further workup, since all procedures have potential risks. Patient understands and would like to think further about whether she would like to pursue TAVR. New atrial flutter: HR controlled on increased dose of Toprol to 75mg daily heparin gtt and Coumadin instituted INR only 1.1, will increase dose to 5mg daily unfortunately with Cr of 1.7 she is not good candidate for Lovenox or the NOAC Discussed in detail why Coumadin is his drug of choice in valvular heart disease and atrial fibrillation presently on bridging therapy HTN - she will remain on a Toprol 75mg daily Borderline DM - Metformin held for now - Novolog [facility], can resume Metformin on d/c transfer to medical, here in hospital until INR therapeutic INR is 1.6 today increase Coumadin to 10 mg daily Advanced care planning discussed with the patient. Her daughter was present patient has a will, but no living will or power of research attorney. She has 3 children , and her is . A power of research attorney, and a living will are important to allow for the patient's wishes to be expressed at all times. Patient has been thinking about a living will and does not have any answers as to what should be in the document presently. Various scenarios were discussed and she understands the need to obtain the above documents.
[2016-09-11] VITALS: BP 130/51; PULSE 61; TEMP 36.3; O2SAT 97
[2016-09-11 07:21] LABS: HEMATOCRIT 34.6 % (37-47); MEAN CELL VOLUME 86.1 fL (80-100); MEAN CORPUSCULAR HEMOGLOBIN 28.9 pg (25-34); MEAN CORPUSCULAR HGB CONC 33.5 g/dl (32-36); PLATELET COUNT 147 K/uL (130-400); RED BLOOD COUNT 4.02 M/uL (4.2-5.4); WHITE BLOOD COUNT 5.15 K/uL (4.8-10.8)
[2016-09-11 07:22] VITALS: BP 136/65; PULSE 63; TEMP 36.6; O2SAT 97
[2016-09-11 07:42] LABS: INR 2.2 (0.9-1.1); PARTIAL THROMBOPLASTIN RATIO 2.9; PROTHROMBIN TIME (PATIENT) 24.8 SECONDS (9.0-12.0)
[2016-09-11] MEDS: SPIRONOLACTONE 25 MG TAB PO SCH (07:49)
[2016-09-11] MEDS: METOPROLOL SUCC 25MG EXT REL TAB PO SCH (07:49)
[2016-09-11] MEDS: ASPIRIN 325 MG ECTAB PO SCH (07:49)
[2016-09-11] MEDS: RANITIDINE HCL 150 MG TAB PO SCH (07:49)
[2016-09-11] MEDS: FUROSEMIDE 40 MG TAB PO SCH (07:49)
[2016-09-11] MEDS ORDERED: CMD10 PO (08:06)
[2016-09-11] MEDS ORDERED: LSX40 PO (08:06)
[2016-09-11] MEDS ORDERED: TPRSR25 PO (08:06)
--- NOTE | 2016-09-11 08:33 | Discharge Instructions ---
Discharge Instructions Date of Service Sep 11, 2016. Admission Reason for Admission: Acute Chf Discharge Discharge Diagnosis / Problem: CHF afib Discharge Goals Goal(s): Improve function Activity Recommendations Activity Limitations: resume your previous activity . Instructions / Follow-Up Instructions / Follow-Up Call your Primary Care doctor if any of the following symptoms or problems start or get worse: * Shortness of breath or difficulty breathing * Wake up at night short of breath * Chest pain * Cough * Swelling of your hands, feet, or legs * More fatigued or tired with your normal activity * Palpitations - sudden fast heart beats WEIGHT * Weigh yourself every morning after using the bathroom. * Use the same scale. * Wear the same amount of clothing. * Write your weight down on a chart. * Call your Primary Care doctor if you gain more than 2-3 pounds in 1-2 days. MEDICATIONS * Use this discharge instruction sheet for medication instructions. * Take your medications at the time your doctor ordered. * Do not skip a dose of your medicines. * If you miss a dose of medicine, take it as soon as possible, but DO NOT DOUBLE A DOSE. * Read your medicine information when you get home. * Know all of the side effects of your medicine. If in doubt, ask your pharmacist * Call your Primary Care doctor's office if you have any side effects. * Be sure all of your doctors know what medicine and herbs you take (including cold, flu, and herbal medicine). Take the following with you to your follow-up doctor appointments: * Weight Chart * Medication List * List of questions Do not drink excessive alcohol, beer or wine. Current Hospital Diet Patient's current hospital diet: AHA Diet (Heart Healthy), Diabetes Type 2 Diet Discharge Diet Recommended Diet: Low Sodium Diet (2gm Na), Diabetes Type 2 Diet Pending Studies Studies pending at discharge: no Medical Emergencies . Who to Call and When: Call 911 or go to the Emergency Room if: * If at any time you feel your situation is an emergency * You have tightness or pain in your chest that does not go away with rest or Nitroglycerin * You are very short of breath even with rest . Non-Emergent Contact Non-Emergency issues call your: Primary Care Provider . Past History Medical & Surgical History: (1) Acute CHF (2) Atrial flutter (3) Diabetes (4) HTN (hypertension) . "Provider Documentation" section prepared by Anton Izaguirre. . VTE Core Measure Inpt VTE Proph given/why not?: Unfractionated heparin SQ, Warfarin (Coumadin)
[2016-09-11 08:55] VITALS: BP 136/65; PULSE 63; TEMP 36.6; O2SAT 97
--- NOTE | 2016-09-15 09:48 | EDITING REQUIRED CODING QUERY ---
There is no mention of CKD in my H&P CODING QUERY To promote full compliance with coding requirements relating to patient care, provider participation is requested in all cases of front end application developer uncertainty. Please assist us with the question(s) below: Coding Question(s): Dr. Lainez, In the H&P, you documented the following, "Labs are also notable for a degree of kidney injury as far as she knows her kidney function has previously been normal." Please clarify this finding. Did the patient have: ( ) acute kidney injury ( ) chronic kidney failure, please specify stage: ( ) CKD stage 1 ( ) CKD stage 2 ( ) CKD stage 3 ( ) CKD stage 4 ( ) CKD stage 5 ( ) ESRD Physician's Response(s): CKD did not appear in my H&P - I do not see pts after initial admission Thank you for your time and prompt response, BLADE Morris, SPOON MAKER
--- NOTE | 2016-09-25 07:27 | DISCHARGE SUMMARY ---
Please see dictated H&P for full details of her presentation. The patient is an 86-year-old with a bioprosthetic aortic valve replacement 18 years ago, hypertension, diabetes, who presented with acute shortness of breath and was discovered to be in congestive heart failure. BNP was 5938. Chest x-ray was consistent with pulmonary edema. She was admitted for diuresis with IV Lasix. Cardiology was consulted. Dr. Jermaine Dickson was the impregnator and drier helper. At that time, the patient was diuresing nicely with IV Lasix, recommended low-sodium diet, daily weights, and echocardiogram showed mildly dilated right ventricle with EF of 55-60%, no regional wall motion abnormalities, mild concentric left ventricular hypertrophy, mild biatrial dilation of bioprosthetic aortic valve with elevated transvalvular gradients and velocities suggesting moderate to severe stenosis, mild aortic regurgitation, a restricted posterior mitral leaflet with at least moderate mitral regurgitation, systolic reversal of pulmonary venous flow pattern suggesting significant mitral regurgitation, mildly elevated right ventricular systolic pressure. Compared to a prior study on 02/08, the aortic valve transvalvular gradients are now more significantly elevated. Mitral regurgitation also appeared more significant. The patient did well with diuresis. Detailed conversations were held with the patient regarding the next step in her care. If she is interested in transarterial valvular replacement, a transesophageal echocardiogram will be the next up. However, she is not agreeable to that procedure, there is no need for a transesophageal echocardiogram. She also has moderate to severe mitral regurgitation. Possibility of continued medical management with consideration for end-stage disease was also discussed. She was in atrial fibrillation and needed IV medication, IV heparin until her Coumadin was therapeutic secondary to her valvular heart disease. Advanced care planning was discussed in detail with the patient. The patient's INR was therapeutic on 09/11/2016 of 2.2 and she was discharged to home in stable condition, will follow up with cardiology and her primary care physician. MEDICATIONS ON DISCHARGE: DICTATION ENDS HERE
[2016-11-07] MEDS ORDERED: ASPI81TA28 PO (07:36)
[2016-11-07] MEDS ORDERED: FURO-85 PO (07:37)
[2016-11-07] MEDS ORDERED: METO25TA3 PO (07:38)
[2016-11-07] MEDS ORDERED: LPT40 PO (09:49)
== END 2016-09-11 09:38 | disposition home or self-care (01) | DRG 292 ==
LOC: C.EDB 09:11 → C.2E 11:35 → ENRESERV 11:48 → C.MS4W 09-07 11:03
PROVIDERS: ADMIT Internal Medicine; ATTEND Internal Medicine
DX: I11.0 Hypertensive heart disease with heart failure (principal); I48.92 Unspecified atrial flutter; T82.857A Stenosis of other cardiac prosthetic devices, implants and grafts, initial encounter; N28.9 Disorder of kidney and ureter, unspecified; I50.31 Acute diastolic (congestive) heart failure; Y71.2 Prosthetic and other implants, materials and accessory cardiovascular devices associated with adverse incidents; I34.0 Nonrheumatic mitral (valve) insufficiency; I27.2 Other secondary pulmonary hypertension; R73.03 Prediabetes; Z79.82 Long term (current) use of aspirin; Z79.84 Long term (current) use of oral hypoglycemic drugs; Z79.899 Other long term (current) drug therapy

== ENCOUNTER → 2016-09-16 | Outpatient (CLI) | payer OTHER, MEDICARE ==
[~2016-09-16] MED LIST changes: -ASPEC325; +ASPI325T39 PO; +ASPI81TA28 PO; -CLTP; +CMD10 PO; +FURO-85 PO; +GLC/500 PO; +LPT40 PO; +LSX40 PO; +METO25TA3 PO; -METO50TA16; +METO50TA16 PO; -SPIR25TA; +SPIR25TA PO; +TPRSR25 PO; +ZNTT/150 PO
[2016-09-16 10:41] LABS: BLOOD UREA NITROGEN 33 mg/dl (7-18); BUN/CREATININE RATIO 17.4 (10-20); CALCIUM 9.8 mg/dl (8.5-10.1); CARBON DIOXIDE 31 mmol/L (21-32); CHLORIDE 102 mmol/L (98-107); GLUCOSE 78 mg/dl (70-99); MAGNESIUM 2.3 mg/dl (1.8-2.4); POTASSIUM 4.3 mmol/L (3.5-5.1); SODIUM 136 mmol/L (136-145)
== END | disposition home or self-care (01) ==
LOC: C.LAB 09:16
PROVIDERS: ATTEND Internal Medicine Cardiovascular Disease
DX: I10 Essential (primary) hypertension (principal)

== ENCOUNTER → 2016-11-07 | Outpatient (CLI) | payer OTHER, MEDICARE ==
[~2016-11-07] VITALS: Ht 170.2 cm; Wt 75.0 kg
[2016-11-07] VITALS (12 sets, daily range): BP systolic 116–188; BP diastolic 26–53; PULSE 67–92; TEMP 36.8; O2SAT 94–100; Ht 170.2 cm; Wt 75.0 kg
[~2016-11-07] MED LIST changes: +BENZOCAIN/TETRACA/BUTAM SPRAY 200 APPLN/20 GM SPRY ONE; +CANNULA ONE; +FENTANYL CITRATE INJ 50 MCG/1 ML 2 ML VIAL ONE; +MIDAZOLAM HCL 1 MG/ML 2ML VIAL ONE
--- NOTE | 2016-11-07 08:12 | History & Physical Bridge Note ---
H&P Re-Evaluation Bridge Note: I have examined the patient, reviewed the History & Physical and in the interval since the performance of the History & Physical I have noted the following changes of clinical significance: No changes noted
--- NOTE | 2016-11-07 08:13 | Procedure Note ---
Pre-Mod Sedation Assessment General Date of Moderate Sedation: Nov 07, 2016. Vital Signs: Vital Signs Past 12 Hours Date Time Temp Pulse Resp B/P (MAP) Pulse Ox O2 Delivery O2 Flow Rate FiO2 11/07/16 07:40 36.8 76 14 150/40 96 Room Air Review Cardiovascular: + systolic murmur (Regular with ROSAMARIA. normal S1 and S2) Abdomen: non tender, soft Lungs: lungs clear Pre-Sedation Airway Assessment Oral Cavity: Dentures Short Thick Neck: No Hx of Sleep Apnea: No Smoking Status: Never Smoker Procedure Planning Contraindications-for Mod Sed: None Yes Notes The planned sedation has been discussed with the patient and consent obtained. I have identified the patient, determined the appropriateness of sedation and have assessed the patient immediately prior to the procedure. All medicine(s) and interventions are by my order.
--- NOTE | 2016-11-07 09:40 | Procedure Note ---
Post-Mod Sedation Assessment General Date of Moderate Sedation Nov 07, 2016. Vital Signs: Vital Signs Past 12 Hours Date Time Temp Pulse Resp B/P (MAP) Pulse Ox O2 Delivery O2 Flow Rate FiO2 11/07/16 09:30 65 12 129/28 (61) 94 Room Air 11/07/16 09:19 69 14 141/41 (74) 93 Room Air 11/07/16 09:11 73 12 121/30 (60) 93 Room Air 11/07/16 09:05 67 14 141/38 (72) 97 Nasal Cannula 2 11/07/16 09:02 Nasal Cannula 2 11/07/16 09:00 74 19 147/52 97 Nasal Cannula 2 11/07/16 08:55 77 17 151/53 97 Nasal Cannula 2 11/07/16 08:50 74 19 151/44 96 Nasal Cannula 2 11/07/16 08:45 77 12 136/36 96 Nasal Cannula 2 11/07/16 08:40 70 18 120/36 95 Nasal Cannula 2 11/07/16 08:36 73 18 126/35 96 Nasal Cannula 2 11/07/16 08:32 67 17 134/36 96 Nasal Cannula 2 11/07/16 08:28 82 23 142/42 97 Nasal Cannula 2 11/07/16 08:24 91 22 150/39 96 Nasal Cannula 2 11/07/16 08:19 92 16 188/53 100 Nasal Cannula 2 11/07/16 07:40 36.8 76 14 150/40 96 Room Air Review - Discharge Criteria Vital Signs Stable: Yes Alert/Oriented/Conversant: Yes Returned to Baseline Mental St: Yes Nausea Absent/Minimal: Yes Pain/Discomfort/Absent/Minimal: Yes Normal/Baseline Respirations: Yes Active Bleeding?: No
--- NOTE | 2016-11-07 09:43 | Cardiology Procedure Brief Nt ---
Preliminary Cardiology Note Procedure Date Nov 07, 2016. Pre-Procedure Diagnosis Aortic Stenosis and mitral regurgitation Post-Procedure Diagnosis same and PFO Procedure(s) Performed SOUTH Polysomnographer [employer] Consultant(s) Elisa Estimated Blood Loss none Preliminary Findings Prelim report. formal review to follow. Normal LV systolic function. Bioprosthetic aortic valve with stenosis (measurements to follow). Appears nonsevere. Moderate mitral regurgitation. Large atheromas within descending thoracic aorta. PFO. Recommendations Continue to follow up for monitoring. Specimens none Complication(s) None Disposition
--- NOTE | 2016-11-07 09:45 | Discharge Instructions ---
Discharge Instructions Date of Service Nov 07, 2016. Visit Reason for Visit: Transesophageal echo to evaluate aortic stenosis and mitral regurgitation. Discharge Discharge Diagnosis / Problem: Bioprosthetic aortic valve with stenosis. Mitral regurgitation. Discharge Goals Goal(s): Diagnostic testing Medications Restart Stopped Medication(s): Resume usual medications. Activity Recommendations Activity Limitations: per Instructions/Follow-up section Anesthesia . Post Anesthesia Instructions: If you have had General Anesthesia or IV Sedation: * Do not drive today. * Resume driving when surgeon permits. * Do not make important decisions or sign legal documents today. * Call surgeon for: 1. Temperature elevations greater than 101 degrees F. 2. Uncontrollable pain. 3. Excessive bleeding. 4. Persistent nausea and vomiting. 5. Medication intolerance (nausea, vomiting or rash). * For nausea and vomiting use only clear liquids such as: tea, soda, bouillon until nausea subsides, then gradually increase diet as tolerated. * If you have any concerns or questions, call your surgeon's office. If physician is unavailable and it is an emergency, call 911 or go to the nearest emergency room. . Instructions / Follow-Up Instructions / Follow-Up ACTIVITY RECOMMENDATIONS: Resume activities as tolerated with no limitations unless specified. __ No lifting over _10_ pounds for 24 hours. __ Do not engage in vigorous exercise, sexual activity, or sports for 24 hours. __ Do not drive or operate any motorized equipment for 24 hours. __ You may return to work/school tomorrow. __ Nothing to eat or drink until gag reflex returns. __ No HOT or WARM liquids for _8_ hours. __ Avoid "scratchy" foods such as potato chips or pretzels for 24 hours following procedure. SPECIAL CARE: If you experience coughing up or vomiting of blood, contact ___[phone] Diet Recommendations Recommended Home Diet: resume previous diet, diabetes diet Procedures Procedures Performed: Transesophageal echocardiogram Pending Studies Studies pending at discharge: no Medical Emergencies . Who to Call and When: Medical Emergencies: If at any time you feel your situation is an emergency, please call 911 immediately. . Non-Emergent Contact Non-Emergency issues call your: Larder Cook . . "Provider Documentation" section prepared by Jermaien Chapa. .
--- NOTE | 2016-11-10 09:31 | TEE ---
*NOTICE TO RECEIVING REPUBLICAN AGENCY This information is strictly Confidential and protected under [place] law. [place] law prohibits you from making any further disclosure of this information unless further disclosure is expressly permitted by the written consent of the person to whom it pertains or is authorized by law. A general authorization for the release of medical or other information is not sufficient for this purpose. Hospital accepts no responsibility if the information is made available to any other person, INCLUDING THE PATIENT. Interpretation Summary * SEDATION START TIME 8:12AM * SEDATION END TIME 9:02AM * Name: ANDRAE GUZMAN Study Date: 11/07/2016 07:36 AM BP: 150/40 mmHg * Patient Location: [facility] HR: 77 * : 1930 (M/d/y) Gender: Female Height: 67 in * Age: 86 yrs Ethnicity: [place] Weight: 165 lb * Performed By: Zunilda Pérez RDCS * * Reason For Study: AORTIC STENOSIS * BSA: 1.9 m2 * -- Conclusions -- * SOUTH: * 1. 1Normal left ventricular size and systolic function. EF 55-60%. No regional wall motion abnormalities. Mild concentric left ventricular hypertrophy. * 2. The left atrium is mildly dilated. * 3. Bioprosthetic aortic valve with acceptable transvalvular gradient/velocities and mild to moderate regurgitation. Velocities/gradients can be underestimated on SOUTH study. * 4. Tethered posterior mitral leaflet. There is moderate mitral regurgitation. * 5. PFO with left to right interatrial shunt. * 6. Severe atherosclerosis of thoracic aorta with large atheromas within the descending thoracic aorta. * 7. Patient tolerated well without known complication. Procedure Details * SOUTH Probe #1 utilized for procedure. * The study was performed in Cardiopulmonary Department. * Time out was conducted by the physician, nurse, and ekg monitor tech with positive identification of patient and procedure. * Informed consent for Transesophageal Echocardiogram was obtained prior to the procedure. * An intravenous line was placed. A topical anesthetic agent was used for oropharangeal anesthesia. A bite block was inserted. * The patient's vital signs, including blood pressure, heart rate, pulse oximetry and cardiac rhythm were monitored throughout the procedure . * Fentanyl 25 mcg was administered for procedural sedation. * Midazolam 2 mg administered for sedation. * The posterior oropharynx was anesthetized using a topical anesthetic spray. A bite guard was inserted. * A multifrequency, multiplane transesopheageal echocardiographic endoscope was inserted and manipulated in the standard fashion to achieve multiplane views. * The transesophageal probe was passed without difficulty. * The usual views were obtained; basal, mid-esophageal, transgastric and aortic views. * The patient tolerated the procedure well without evidence of orophangeal or esophageal trauma. * A 2D transesophageal echocardiogram with spectral and color flow Doppler was performed. Left Ventricle * Normal left ventricular size and systolic function. EF 55-60%. No regional wall motion abnormalities. Mild concentric left ventricular hypertrophy. Right Ventricle * The right ventricle is normal in size and function. Atria * The left atrium is mildly dilated. * No thrombus is detected in the left atrial appendage. * Right atrial size is normal. * PFO with left to right interatrial shunt. Mitral Valve * Tethered posterior mitral leaflet. * There is no mitral valve stenosis. * There is moderate mitral regurgitation. Tricuspid Valve * The tricuspid valve is not well visualized, but is grossly normal. * There is no tricuspid stenosis. * There is mild tricuspid regurgitation. Aortic Valve * Bioprosthetic aortic valve with acceptable transvalvular gradient/velocities and mild to moderate regurgitation. * Bioprosthetic aortic leaflets do not appears significantly stenotic visually. Pulmonic Valve * The pulmonic valve is not well visualized. * There is no significant pulmonary regurgitation. Great Vessels * The aortic root is normal size. * Severe atherosclerosis of thoracic aorta with large atheromas within the descending thoracic aorta. * Blunted pulmonary venous flow pattern. Pericardium * There is no pericardial effusion. MMode 2D Measurements and Calculations Ao root diam 3.5 cm Ao root area 9.6 cm\S\2 LVOT diam 2.4 cm LVOT area 4.5 cm\S\2 Doppler Measurements and Calculations MV E max christopher 124.2 cm/sec Ao V2 max 280.2 cm/sec Ao max PG 31.4 mmHg Ao max PG (full) 29.9 mmHg Ao V2 mean 192.4 cm/sec Ao mean PG 16.7 mmHg Ao mean PG (full) 15.7 mmHg Ao V2 VTI 61.5 cm BRANDIN(I,A) 1.2 cm\S\2 BRANDIN(I,D) 1.2 cm\S\2 BRANDIN(V,A) 0.97 cm\S\2 BRANDIN(V,D) 0.97 cm\S\2 AI max christopher 382.6 cm/sec AI max PG 58.7 mmHg AI dec slope 391.1 cm/sec\S\2 AI P1/2t 286.5 msec LV V1 max PG 1.5 mmHg LV V1 mean PG 0.92 mmHg LV V1 max 60.5 cm/sec LV V1 mean 45.6 cm/sec LV V1 VTI 16.9 cm MR max christopher 556.5 cm/sec MR max PG 123.9 mmHg SV(Ao) 589.0 ml SI(Ao) 316.1 ml/m\S\2 SV(LVOT) 76.0 ml SI(LVOT) 40.8 ml/m\S\2 TR max christopher 248.5 cm/sec
== END | disposition home or self-care (01) ==
LOC: C.CPL 06:48
PROVIDERS: ATTEND Internal Medicine Cardiovascular Disease
DX: I34.0 Nonrheumatic mitral (valve) insufficiency (principal); I35.0 Nonrheumatic aortic (valve) stenosis; Z95.3 Presence of xenogenic heart valve

== ENCOUNTER 2017-05-03 08:55 | Emergency (ER) | payer OTHER, MEDICARE ==
[~2017-05-03] VITALS: Ht 170.2 cm; Wt 71.2 kg
[~2017-05-03 08:55] MED LIST changes: -ASPI325T39 PO; -BENZOCAIN/TETRACA/BUTAM SPRAY 200 APPLN/20 GM SPRY ONE; -CANNULA ONE; -FENTANYL CITRATE INJ 50 MCG/1 ML 2 ML VIAL ONE; -LSX40 PO; -METO50TA16 PO; -MIDAZOLAM HCL 1 MG/ML 2ML VIAL ONE; +RANI150T85 PO; -TPRSR25 PO; -ZNTT/150 PO
[2017-05-03 08:58] VITALS: TEMP 36.5; Ht 170.2 cm; Wt 71.2 kg
--- NOTE | 2017-05-03 09:13 | EMERGENCY ROOM VISIT NOTE ---
History Report prepared by Bereket: Jhon Trinh Under the Supervision of: Dr. Talat Hobson M.D. First contact with patient: 09:05 Chief Complaint: BLEEDING Stated Complaint: BLEEDING-BLOOD CLOTS Nursing Triage Summary: Pt is on coumadin, last INR checked on 04/29/17 for 1.7. Pt woke up today with blood oozing from her umbilicus, denies injury, denies pain. History of Present Illness The patient is a 87 year old female who presents to the Emergency Room with complaints of constant bleeding from her belly button that began this morning. Patient denies any associated pain or recent injury to the area. She denies having abdominal pain. Patient is present with her daughter. Daughter states that the patient had her aortic valve replaced in [place] 2 weeks ago. Patient adds that she is on Coumadin. She states her INR was last checked 4 days ago. She states it was 1.7 at that time. Daughter adds that the patient had "a few blood clots when the patient blew her nose this morning". Source of History: patient, family (Daughter) Onset: This morning Position: abdomen Timing: constant Modifying Factors (Relieving): other (None) Associated Symptoms: No abdominal pain Review of Systems See HPI for pertinent positives & negatives. A total of 10 systems reviewed and were otherwise negative. Past Medical & Surgical Medical Problems: (1) Acute CHF (2) Aortic regurgitation (3) Borderline diabetes (4) Diabetes (5) HTN (hypertension) Surgical Problems: (1) Heart valve replaced (2) History of aortic valve replacement with bioprosthetic valve Family History Diabetes mellitus Hypertension Social History Smoking Status: Never Smoker Marital Status: Housing Status: lives alone Occupation Status: retired Current/Historical Medications Scheduled Aspirin (Aspirin Ec), 81 MG PO DAILY Atorvastatin (Lipitor), 40 MG PO HS Metoprolol Succ (Toprol Xl) (Toprol-Xl), 25 MG PO DAILY Multivitamin (Multivitamin), 1 TAB PO DAILY Ranitidine (Zantac), 150 MG PO DAILY Torsemide (Demadex), 1 TAB PO DAILY Warfarin Sod (Jantoven), 1 MG PO DAILY Warfarin Sod (Jantoven), 5 MG PO DAILY Allergies Coded Allergies: Ciprofloxacin (Unverified Allergy, Severe, HIVES, 05/03/17) Penicillins (Unverified Allergy, Mild, HIVES, 05/03/17) Quinolones (Unverified Allergy, Mild, HIVES, 05/03/17) Physical Exam Vital Signs Date Time Temp Pulse Resp B/P (MAP) Pulse Ox O2 Delivery O2 Flow Rate FiO2 05/03/17 10:00 87 16 128/78 99 05/03/17 08:58 36.5 95 18 158/79 99 Room Air Physical Exam GENERAL: Awake, alert, well-appearing, in no acute distress HENT: Normocephalic, atraumatic. Oropharynx unremarkable. EYES: Normal conjunctiva. Sclera non-icteric. NECK: Supple. No nuchal rigidity. FROM. No JVD. RESPIRATORY: Clear to auscultation. CARDIAC: Regular rate, normal rhythm. Extremities warm and well perfused. Pulses equal. ABDOMEN: Friable tissue around umbilicus area. Oozing blood from the area. Soft , non-distended. No tenderness to palpation. No rebound or guarding. No masses. RECTAL: Deferred. MUSCULOSKELETAL: Chest examination reveals no tenderness. The back is symmetrical on inspection without obvious abnormality. There is no CVA tenderness to palpation. No joint edema. LOWER EXTREMITIES: Calves are equal size bilaterally and non-tender. No edema. No discoloration. NEURO: Normal sensorium. No sensory or motor deficits noted. SKIN: No rash or jaundice noted. Medical Decision & Procedures Laboratory Results Test 05/03/17 09:17 Prothrombin Time 22.0 SECONDS (9.0-12.0) Prothromb Time International Ratio 2.1 (0.9-1.1) Labs reviewed by ED physician. Procedure Friable area was glued. ED Course 0911: Past medical records reviewed. The patient was evaluated in room A3. A complete history and physical examination was performed. 0959: Upon reexamination the patient is resting comfortably. I discussed results and treatment plan with the patient. She verbalizes agreement and understanding. The patient is ready for discharge. Medical Decision This is an 87-year-old female who presents emergency department complaining of bleeding from her umbilicus. On physical examination there is some friable skin in this area. This was cleaned and closed with glue. The bleeding was then under control. The patient's INR was checked while she was in the emergency department. Repeat examination revealed improvement in the patient's symptoms. I do believe that the patient is well enough to be discharged home for follow-up with her primary care physician. Patient was in agreement with the treatment plan. Medication Reconcilliation Current Medication List: was personally reviewed by me Blood Pressure Screening Patient's blood pressure: Elevated blood pressure Blood pressure disposition: Referred to PCP Impression Primary Impression: Bleeding Scribe Attestation The scribe's documentation has been prepared under my direction and personally reviewed by me in its entirety. I confirm that the note above accurately reflects all work, treatment, procedures, and medical decision making performed by me. Departure Information Dispostion Home / Self-Care Referrals Eran Lieberman M.D. (PCP) Forms HOME CARE DOCUMENTATION FORM, IMPORTANT VISIT INFORMATION Patient Instructions ED Laceration Ext Skin Glue, [facility] Additional Instructions You have been examined and treated today on an emergency basis only. This is not a substitute for, or an effort to provide, complete comprehensive medical care. It is impossible to recognize and treat all injuries or illnesses in a single emergency department visit. It is therefore important that you follow up closely with Dr Lieberman. Call as soon as possible for an appointment. Thank you for your time and consideration. I look forward to speaking with you again soon. Please don't hesitate to call us if you have any questions.
[2017-05-03 09:36] LABS: INR 2.1 (0.9-1.1)
[2017-05-03] MEDS ORDERED: WARF1TAB6 PO (09:44)
[2017-05-03] MEDS ORDERED: MULT-506 PO (09:44)
[2017-05-03] MEDS ORDERED: TORS20TA2 PO (09:44)
[2017-05-03] MEDS ORDERED: WARF5TAB7 PO (09:44)
[2017-05-03 10:00] VITALS: BP 128/78; PULSE 87; O2SAT 99
== END 2017-05-03 10:01 | disposition home or self-care (01) ==
LOC: C.EDB 08:56 → C.EDA 10:01
DX: R19.8 Other specified symptoms and signs involving the digestive system and abdomen (principal); Z95.2 Presence of prosthetic heart valve; R73.03 Prediabetes; I10 Essential (primary) hypertension; Z79.82 Long term (current) use of aspirin; Z79.01 Long term (current) use of anticoagulants; Z88.1 Allergy status to other antibiotic agents; Z88.0 Allergy status to penicillin; Z88.8 Allergy status to other drugs, medicaments and biological substances; Z83.3 Family history of diabetes mellitus; Z82.49 Family history of ischemic heart disease and other diseases of the circulatory system